=== PATIENT | female | born 1940 | race Caucasian/White ===

== ENCOUNTER 2017-10-30 20:18 | Observation (INO) | payer MEDICARE, OTHER ==
[2017-10-30 21:00] LABS: BASO % 0.3 % (0.0-2.0); EOS # 0.3 K/uL (0.0-0.7); EOS % 4.2 % (0.0-4.0); HEMOGLOBIN 9.8 g/dL (11.0-16.0); LYMPH # 1.4 K/uL (1.0-4.3); LYMPH % 17.8 % (20.0-40.0); MEAN CELL VOLUME 81.7 fL (81.0-99.0); MEAN CORPUSCULAR HEMOGLOBIN 27.1 pg (27.0-31.0); MEAN CORPUSCULAR HGB CONC 33.1 g/dL (33.0-37.0); MEAN PLATELET VOLUME 8.3 fL (7.2-11.7); MONO # 0.6 K/uL (0.0-0.8); MONO % 7.8 % (0.0-10.0); NEUT # 5.4 K/uL (1.8-7.0); NEUT % 69.9 % (50.0-75.0); NRBC % 0.1 % (0.0-2.0); RBC 3.62 Mil/uL (3.80-5.20); RED CELL DISTRIBUTION WIDTH 13.1 % (11.5-14.5); WHITE BLOOD COUNT 7.8 K/uL (4.8-10.8)
[2017-10-30 21:09] LABS: PROTHROMBIN TIME 11.3 SECONDS (9.7-12.2)
[2017-10-30 21:14] LABS: ALB/GLOB RATIO 1.1 (1.0-2.1); ALBUMIN 3.7 g/dL (3.5-5.0); ALT/SGPT 27 U/L (9-52); AST/SGOT 28 U/L (14-36); BLOOD UREA NITROGEN 20 mg/dL (7-17); CALCIUM 9.1 mg/dl (8.6-10.4); GFR AFRICAN-AMERICAN > 60; GFR NON-AFRICAN AMERICAN > 60; LIPASE 305 U/L (23-300)
[2017-10-30 21:25] LABS: B-TYPE NATRIURETIC PEPTIDE 421 pg/mL (0-900); CK-MB 1.36 ng/mL (0.0-3.38)
[2017-10-30] MEDS ORDERED: Sodium Chloride 0.9% 500 ML IV STA (21:28)
[2017-10-30] MEDS ORDERED: Sodium Chloride 0.9% 1,000 ML ONE (21:37)
--- NOTE | 2017-10-30 22:06 | C.PDOC ---
Time Seen by Provider: 10/30/17 20:38 Chief Complaint (Nursing): Chest Pain History Per: Patient, Family Onset/Duration Of Symptoms: Hrs (2) Current Symptoms Are (Timing): Better Severity: Moderate Quality: "Pain" Modifying Factors: Other Indicated Below Alleviating Factors: None Additional History Per: Prior Records Past Medical History Reviewed: Historical Data, Nursing Documentation, Vital Signs Vital Signs: Last Vital Signs Temp 99.5 F 10/30/17 20:32 Pulse 78 10/30/17 20:32 Resp 18 10/30/17 20:32 BP 147/55 L 10/30/17 20:32 Pulse Ox 100 10/30/17 20:32 - Medical History PMH: CVA (affecting left side), Diabetes (type 2), HTN Family History: States: Unknown Family Hx - Social History Hx Tobacco Use: No Hx Alcohol Use: No Hx Substance Use: No - Immunization History Hx Tetanus Toxoid Vaccination: No Hx Influenza Vaccination: No Hx Pneumococcal Vaccination: No Review Of Systems Except As Marked, All Systems Reviewed And Found Negative. Constitutional: Negative for: Fever Cardiovascular: Positive for: Chest Pain Respiratory: Negative for: Hemoptysis Gastrointestinal: Negative for: Vomiting, Diarrhea Musculoskeletal: Negative for: Neck Pain, Back Pain Neurological: Positive for: Weakness (left side, old) Physical Exam - Physical Exam Appears: No Acute Distress, Chronically Ill Skin: Normal Color, Warm, Dry Head: Atraumatic, Normacephalic Neck: Normal ROM, Supple Chest: Symmetrical, No Deformity Cardiovascular: Rhythm Regular Respiratory: Normal Breath Sounds, No Accessory Muscle Use Gastrointestinal/Abdominal: Soft Back: No CVA Tenderness Extremity: Normal ROM, No Calf Tenderness Neurological/Psych: Oriented x3, No Normal Motor (left side weakness, old) ED Course And Treatment - Laboratory Results Result Diagrams: 10/30/17 20:55 10/30/17 20:55 Interpretation Of Abnormal: Mild anemia and hyponatremia. Mildly elevated BUN. ECG: Interpreted By Me, Viewed By Me ECG Rhythm: Sinus Rhythm, 1st Degree HB, Nonspecific Changes ECG Interpretation: No Changes From Prior Rate From EC O2 Sat by Pulse Oximetry: 100 Pulse Ox Interpretation: Normal - Radiology CXR: Interpreted by Me, Viewed By Me CXR Interpretation: Yes: No Acute Disease Progress - Interventions Interventions:: Observation - Medications Administered Oral: Aspirin (Pt took her aggernox today) - Data Reviewed Data Reviewed: Lab, Diagnostic imaging, EKG, Old records - Continuity of Care Discussed patient case with:: Patient, Family-HIPPA compliant, ED Nurse, PMD Disposition Discussed With : Vipin Lopez Comment: He accepted pt on his service and gave admitting orders to the nurse. Doctor Will See Patient In The: Hospital Counseled Patient/Family Regarding: Studies Performed, Diagnosis - Disposition Disposition: HOSPITALIZED Disposition Time: 22:07 Condition: FAIR - Clinical Impression Clinical Impression: Acute chest pain
--- NOTE | 2017-10-31 06:48 | CP.PCM.CON ---
History of Present Illness - History of Present Illness History of Present Illness: CARDIOLOGY CONSULT NOTE Reason for consult: chest pain HPI: Patient is a 76 year old woman with history of stroke with residual left sided weakness; DM2; HTN; anxiety/depression; who presents with 1 day of intermittent left sided subcostal pain that is sharp, occurs at rest, lasts for 1-2 minutes, and resolves on its own. The pain is non-radiating, and not exacerbated by deep inspiration or physical exertion. No associated SOB, nausea or diaphoresis. She came to [facility] (Former[facility]3]. EKG was unremarkable. Troponin negative x 1. CXR unremarkable. BNP 421. Cardiology now called. ROS: as descirbed above, otherwise negative PMH: as above SH: no ETOH, no tobacco, no drugs FH: no premature CAD Meds: noted in EMR All: noted in EMR Past Patient History - Infectious Disease Hx of Infectious Diseases: None - Past Medical History & Family History Past Medical History?: Yes - Past Social History Smoking Status: Never Smoked - CARDIAC Hx Hypertension: Yes - PULMONARY Hx Respiratory Disorders: No - NEUROLOGICAL HX Cerebrovascular Accident: Yes - HEENT Hx HEENT Problems: No - RENAL Hx Chronic Kidney Disease: No - ENDOCRINE/METABOLIC Hx Endocrine Disorders: Yes Hx Diabetes Mellitus Type 1: Yes - HEMATOLOGICAL/ONCOLOGICAL Hx Blood Disorders: No - INTEGUMENTARY Hx Dermatological Problems: No - MUSCULOSKELETAL/RHEUMATOLOGICAL Hx Musculoskeletal Disorders: Yes Hx Falls: No Hx Unsteady Gait: Yes (LEFT SIDED WEAKNESS FROM OLD CVA) - GASTROINTESTINAL Hx Gastrointestinal Disorders: No - GENITOURINARY/GYNECOLOGICAL Hx Genitourinary Disorders: No - PSYCHIATRIC Hx Substance Use: No - SURGICAL HISTORY Hx Surgeries: Yes Hx Tubal Ligation: Yes - ANESTHESIA Hx Anesthesia: Yes Hx Anesthesia Reactions: No Hx Malignant Hyperthermia: No Meds Allergies/Adverse Reactions: Allergies Allergy/AdvReac Type Severity Reaction Status Date / Time No Known Allergies Allergy Verified 01/13/16 22:07 - Medications Medications: Current Medications Alprazolam (Xanax) 0.25 mg PO HS [facility] Stop: 11/07/17 22:01 Amlodipine Besylate (Norvasc) 10 mg PO DAILY [facility] Dipyridamole/Aspirin (Aggrenox 25-200 Mg) 1 ea PO BID [facility] Home Med (Metformin Hcl [Metformin Hcl]) 1,000 mg PO QPM [facility] Home Med (Multivitamin/Iron/Folic Acid [Centrum Complete Multivit Tab]) 1 tab PO DAILY [facility] Home Med ([place]-3 Fatty Acids/Fish Oil [Fish Oil 1,000 Mg Capsule]) 1,000 mg PO DAILY [facility] Home Med (Simvastatin [Simvastatin]) 20 mg PO QPM [facility] Home Med (Vitamin B Complex [B Complete]) 1 each PO DAILY [facility] Metformin HCl (Glucophage) 500 mg PO QAM [facility] Metoprolol Succinate (Toprol Xl) 50 mg PO BID [facility] Pneumococcal Polyvalent Vaccine (Pneumovax 23 Vaccine) 0.5 ml IM .ONCE ONE Stop: 11/02/17 10:01 Sertraline HCl (Zoloft) 50 mg PO DAILY [facility] Sitagliptin Phosphate (Januvia) 100 mg PO DAILY [facility] Physical Exam - Constitutional Appears: Well - Head Exam Head Exam: ATRAUMATIC - Eye Exam Eye Exam: Normal appearance - ENT Exam ENT Exam: Mucous Membranes Moist - Neck Exam Neck exam: Positive for: Normal Inspection - Respiratory Exam Respiratory Exam: Clear to Auscultation Bilateral, NORMAL BREATHING PATTERN - Cardiovascular Exam Cardiovascular Exam: REGULAR RHYTHM, +S1, +S2. absent: Systolic Murmur - GI/Abdominal Exam GI & Abdominal Exam: Soft. absent: Tenderness - Extremities Exam Extremities exam: Negative for: pedal edema Results - Vital Signs Recent Vital Signs: Last Vital Signs Temp 98.0 F 10/31/17 04:22 Pulse 66 10/31/17 04:22 Resp 20 10/31/17 04:22 BP 170/61 H 10/31/17 04:22 Pulse Ox 98 10/31/17 04:22 - Labs Result Diagrams: 10/30/17 20:55 10/30/17 20:55 Labs: Laboratory Results - last 24 hr 10/30/17 10/30/17 10/30/17 20:24 20:55 20:55 WBC 7.8 RBC 3.62 L Hgb 9.8 L Hct 29.6 L MCV 81.7 MCH 27.1 MCHC 33.1 RDW 13.1 Plt Count 273 MPV 8.3 Neut % (Auto) 69.9 Lymph % (Auto) 17.8 L [place] % (Auto) 7.8 Eos % (Auto) 4.2 H Baso % (Auto) 0.3 Neut # (Auto) 5.4 Lymph # (Auto) 1.4 [place] # (Auto) 0.6 Eos # (Auto) 0.3 Baso # (Auto) 0.0 PT INR APTT Sodium 127 L Potassium 5.0 Chloride 94 L Carbon Dioxide 23 Anion Gap 15 BUN 20 H Creatinine 0.8 Est GFR ( Amer) > 60 Est GFR (Non-Af Amer) > 60 POC Glucose (mg/dL) 213 H Random Glucose 213 H Calcium 9.1 Total Bilirubin 0.3 AST 28 ALT 27 Alkaline Phosphatase 86 Total Creatine Kinase 68 CK-MB (Mass) 1.36 Troponin I < 0.0120 NT-Pro-B Natriuret Pep 421 Total Protein 7.1 Albumin 3.7 Globulin 3.5 Albumin/Globulin Ratio 1.1 Lipase 305 H 10/30/17 20:55 WBC RBC Hgb Hct MCV MCH MCHC RDW Plt Count MPV Neut % (Auto) Lymph % (Auto) [place] % (Auto) Eos % (Auto) Baso % (Auto) Neut # (Auto) Lymph # (Auto) [place] # (Auto) Eos # (Auto) Baso # (Auto) PT 11.3 INR 1.0 APTT 33 Sodium Potassium Chloride Carbon Dioxide Anion Gap BUN Creatinine Est GFR ( Amer) Est GFR (Non-Af Amer) POC Glucose (mg/dL) Random Glucose Calcium Total Bilirubin AST ALT Alkaline Phosphatase Total Creatine Kinase CK-MB (Mass) Troponin I NT-Pro-B Natriuret Pep Total Protein Albumin Globulin Albumin/Globulin Ratio Lipase - Impressions Impression: sinus rhythm, prolonged RI, otherwise normal tracing Assessment & Plan - Assessment and Plan (Free Text) Assessment: 1. Atypical chest pain -- likely noncardiac, troponin neg x 1 2. Hypertensive urgency Plan: 1. For better BP control, I will d/c metoprolol and switch to carvedilol 25mg BID 2. Cont amlodipine 10mg daily 3. Check one more troponin -- if negative, then patient would be cardiovascularly stable for discharge and follow up with Dr. Kaur in office in 1-2 weeks for consideration of stress test
[2017-10-31 06:57] LABS: BASO % 0.5 % (0.0-2.0); EOS # 0.3 K/uL (0.0-0.7); EOS % 4.2 % (0.0-4.0); HEMOGLOBIN 9.5 g/dL (11.0-16.0); LYMPH # 1.5 K/uL (1.0-4.3); LYMPH % 21.3 % (20.0-40.0); MEAN CELL VOLUME 80.4 fL (81.0-99.0); MEAN CORPUSCULAR HEMOGLOBIN 27.1 pg (27.0-31.0); MEAN CORPUSCULAR HGB CONC 33.7 g/dL (33.0-37.0); MONO # 0.6 K/uL (0.0-0.8); MONO % 8.2 % (0.0-10.0); NEUT # 4.7 K/uL (1.8-7.0); NEUT % 65.8 % (50.0-75.0); RBC 3.5 Mil/uL (3.80-5.20); RED CELL DISTRIBUTION WIDTH 13.2 % (11.5-14.5); WHITE BLOOD COUNT 7.2 K/uL (4.8-10.8)
[2017-10-31 08:03] LABS: ALBUMIN 3.3 g/dL (3.5-5.0); ALT/SGPT 28 U/L (9-52); AST/SGOT 26 U/L (14-36); BLOOD UREA NITROGEN 14 mg/dL (7-17); GFR AFRICAN-AMERICAN > 60; GFR NON-AFRICAN AMERICAN > 60
[2017-10-31 08:48] VITALS: PULSE 76; RESP 18; TEMP 98.9; O2SAT 99
[2017-10-31 09:55] VITALS: BP 152/76
[2017-10-31] MEDS ORDERED: Enoxaparin 40 mg Syringe SC SCH (10:00)
[2017-10-31] MEDS ORDERED: VITAMIN B COMPLEX PO SCH (10:00)
[2017-10-31] MEDS ORDERED: Omega-3-Acid Ethyl Esters 1 GM Cap PO SCH (10:00)
[2017-10-31] MEDS ORDERED: FOLIC ACID PO SCH (10:00)
[2017-10-31] MEDS ORDERED: IRON PO SCH (10:00)
[2017-10-31] MEDS ORDERED: Metoprolol Succinate 50 mg XL Tab PO SCH (10:00)
[2017-10-31] MEDS ORDERED: MULTIVITAMIN PO SCH (10:00)
[2017-10-31] MEDS ORDERED: FISH OIL PO SCH (10:00)
[2017-10-31] MEDS ORDERED: OMEGA PO SCH (10:00)
[2017-10-31] MEDS ORDERED: FATTY ACIDS PO SCH (10:00)
[2017-10-31] MEDS ORDERED: Aspirin-Dipyridamole 200-25 mg ER Cap PO SCH (10:00)
[2017-10-31] MEDS ORDERED: Multivitamin With Minerals Tab PO SCH (10:00)
--- NOTE | 2017-10-31 11:19 | RAD ---
PROCEDURE: CHEST RADIOGRAPH, 1 VIEW HISTORY: chest pain COMPARISON: None available. FINDINGS: LUNGS: No definite infiltrate identified bilaterally. PLEURA: No pneumothorax or pleural fluid seen. CARDIOVASCULAR: No definite cardiomegaly. Borderline pulmonary vascular congestion. OSSEOUS STRUCTURES: Degenerative bilateral shoulder changes are appreciated. VISUALIZED UPPER ABDOMEN: Normal. OTHER FINDINGS: None. IMPRESSION: Borderline pulmonary vascular congestion. Exam otherwise unremarkable.
[2017-10-31 13:47] LABS: CK-MB 0.82 ng/mL (0.0-3.38)
--- NOTE | 2017-10-31 17:49 | HP ---
SUBJECTIVE: I know Jess very well from hospitals over the past few years. She has some chest pain. She was sent to the emergency room. She is a 76-year-old [place] female with a history of left-sided weakness secondary to CVA. She has diabetes, hypertension, anxiety, depression. She walks very slowly with a cane at home, difficult for her to walk around, but she had left-sided substernal pain, was on and off for about 24 hours, was nonradiating, and she came to the emergency room for evaluation. The first troponins were negative. EKG was fine. We kept her for observation to make sure we are not having any other cardiac issues. There is an old CVA, with left-sided weakness, diabetes, hypertension, anxiety, depression, walks with a cane. SOCIAL HISTORY: No smoking, no drinking, no drugs. FAMILY HISTORY: CAD and diabetes in the family. REVIEW OF SYSTEMS: No acute vision or hearing problems. No sore throat. She has neck pain. She has left-sided weakness. She has chest pain, substernal, sharp, on and off for about 24 hours, lasts a minute at a time. No shortness of breath. No palpitations. No cough. No abdominal pain. No nausea, vomiting, constipation, or diarrhea. No edema. MEDICATIONS: She takes Xanax, amlodipine, Aggrenox, metformin, multivitamins, omega-3, Zocor, vitamin D, Glucophage, Toprol, Zoloft, Januvia. ALLERGIES: NO KNOWN DRUG ALLERGIES. PHYSICAL EXAMINATION: VITAL SIGNS: She has a 98 temperature, 66 pulse, 20 respiratory rate, 170/61 blood pressure, 97% O2 saturation on room air. HEENT: Head is atraumatic, normocephalic. Extraocular muscles are intact. Throat is moist. NECK: Supple. Thyroid midline. No palpable appreciable lymphadenopathy. HEART: Regular rate. LUNGS: Decreased breath sounds, but clear. ABDOMEN: Soft, nontender. Positive bowel sounds. No guarding. No rebound. No CVA tenderness. EXTREMITIES: No edema. Left side is weak secondary to a stroke. Full range of motion of the left side. SKIN: For the most part is intact. Cannot tell any ulcers or rashes at this time. LABORATORY DATA: She had multiple tests. She has a 7.2 white count, 9.5 hemoglobin, 28.1 hematocrit, and 216 platelets. INR is 1. Sodium 127, potassium is 5, BUN is 20, creatinine 0.8, GFR greater than 60, sugars 213, calcium is 9.1, total bilirubin is 0.3, AST is 28, ALT is 27, alkaline phosphatase 86, total creatine kinase is 68. Troponin I is less than 0.012, BNP is 421, total protein is 7.1, albumin is 3.7, and lipase is 305. She was seen by the coding and reimbursement specialist. He recommended some changes in her medicines, to increase her Coreg to 25 b.i.d. She was given metoprolol, continue with Norvasc at 10, we will do that. Waiting for the third troponin to come back. If that is normal, she could be discharged later today. She was here for chest pain, rule out [place]. She is on observation. We will have to consult Cardiology on telemetry. Vipin Lopez DO
--- NOTE | 2017-10-31 21:26 | DS ---
She came in with chest pain. The troponins were negative. She was seen by the hydrogen power plant engineer. All the tests were very good. She will be discharged today home. I will be seeing her in about a week on a house call to check up on her and to see if her chest pain is atypical, noncardiac. Vipin Lopez DO
[2017-11-02] MEDS ORDERED: Pneumococcal 23-Valent Vaccine IM ONE (10:00)
--- NOTE | 2017-11-03 14:19 | CARD ---
APPROVED REPORT EKG Measurement Heart [id number] <Conclusion> Sinus rhythm with 1st degree AV block Possible Left atrial enlargement Borderline ECG
== END 2017-10-31 15:07 | disposition home or self-care (01) ==
LOC: C.ER 20:18 → C.9E 22:08 → C.6T 23:08
PROVIDERS: ADMIT Family Medicine; ATTEND Family Medicine
DX: R07.9 Chest pain, unspecified (principal); E10.9 Type 1 diabetes mellitus without complications; F32.9 Major depressive disorder, single episode, unspecified; F41.9 Anxiety disorder, unspecified; I10 Essential (primary) hypertension; I16.0 Hypertensive urgency
CPT/HCPCS: 36415; 71045; 80053; 82948; 83690; 83880; 84484; 85025; 85610; 85730; 93005; 96372; 97116; 97162; 99285; G0378; G8978; G8979; J1650; J7040

== ENCOUNTER 2018-01-15 16:37 | Inpatient (IN) | payer MEDICARE, OTHER ==
[2018-01-15 18:27] LABS: BASO % 0.4 % (0.0-2.0); EOS # 0.7 K/uL (0.0-0.7); EOS % 7.2 % (0.0-4.0); LYMPH # 1.5 K/uL (1.0-4.3); LYMPH % 15.7 % (20.0-40.0); MEAN CELL VOLUME 81.3 fL (81.0-99.0); MEAN CORPUSCULAR HEMOGLOBIN 27.3 pg (27.0-31.0); MEAN CORPUSCULAR HGB CONC 33.6 g/dL (33.0-37.0); MEAN PLATELET VOLUME 9.2 fL (7.2-11.7); MONO # 0.8 K/uL (0.0-0.8); MONO % 7.7 % (0.0-10.0); NEUT # 6.7 K/uL (1.8-7.0); NRBC % 0.1 % (0.0-2.0); RBC 4.03 Mil/uL (3.80-5.20); RED CELL DISTRIBUTION WIDTH 14.5 % (11.5-14.5); WHITE BLOOD COUNT 9.7 K/uL (4.8-10.8)
[2018-01-15 18:38] LABS: INR 1.1; PROTHROMBIN TIME 11.7 SECONDS (9.7-12.2)
[2018-01-15 18:42] LABS: ALB/GLOB RATIO 1.3 (1.0-2.1); ALBUMIN 4.1 g/dL (3.5-5.0); CALCIUM 12.7 mg/dl (8.6-10.4)
[2018-01-15 18:53] LABS: TROPONIN I 0.021 ng/mL (0.00-0.120)
[2018-01-15] MEDS ORDERED: Sodium Chloride 0.9% 1,000 ML IV SCH (19:00)
[2018-01-15] MEDS ORDERED: Sodium Chloride 0.9% 1,000 ML ONE (19:06)
[2018-01-15 19:20] LABS: SQUAMOUS EPITHIAL 1 /hpf (0-5); URINE BILIRUBIN NEGATIVE (NEGATIVE); URINE BLOOD NEGATIVE (NEGATIVE); URINE CLARITY Hazy (Clear); URINE COLOR Yellow (YELLOW); URINE GLUCOSE (UA) NORMAL (Normal); URINE LEUKOCYTE ESTERASE NEG Leu/uL (Negative); URINE PROTEIN 2+ mg/dL (NEGATIVE); URINE UROBILINOGEN NORMAL mg/dL (0.2-1.0)
[2018-01-15] MEDS ORDERED: Iodixanol 320 MG/ML 100 ML BOTTLE IV ONE (19:39)
--- NOTE | 2018-01-15 21:50 | C.PDOC ---
History Of Present Illness 77yo female, comes to ER with complaints of mild upper abdominal pain and weakness x 8 days. She also reports associated nausea and decreased appetite. She denies any fever, cough, chest pain or shortness of breath. Time Seen by Provider: 01/15/18 18:00 Chief Complaint (Nursing): Upper Extremity Problem/Injury History Per: Patient History/Exam Limitations: no limitations Onset/Duration Of Symptoms: Days Current Symptoms Are (Timing): Still Present Severity: Mild Location Of Pain/Discomfort: RUQ, Epigastric, LUQ Past Medical History Reviewed: Historical Data, Nursing Documentation, Vital Signs Vital Signs: Last Vital Signs Temp 98 F 01/16/18 00:29 Pulse 68 01/16/18 00:29 Resp 20 01/16/18 00:29 BP 150/60 01/16/18 00:29 Pulse Ox 98 01/16/18 00:29 - Medical History PMH: CVA (affecting left side), Diabetes (type 2), HTN Denies: Chronic Kidney Disease Family History: States: Unknown Family Hx - Social History Hx Tobacco Use: No Hx Alcohol Use: No Hx Substance Use: No - Immunization History Hx Tetanus Toxoid Vaccination: No Hx Influenza Vaccination: No Hx Pneumococcal Vaccination: No Review Of Systems Except As Marked, All Systems Reviewed And Found Negative. Constitutional: Negative for: Fever, Chills Cardiovascular: Negative for: Chest Pain Respiratory: Negative for: Cough, Shortness of Breath Gastrointestinal: Positive for: Abdominal Pain Physical Exam - Physical Exam Appears: Non-toxic, No Acute Distress Skin: Warm, Dry Head: Normacephalic Eye(s): bilateral: Normal Inspection Neck: Normal ROM, Supple Chest: Symmetrical Cardiovascular: Rhythm Regular Respiratory: Normal Breath Sounds Gastrointestinal/Abdominal: Soft, Tenderness (minimal tenderness upper quadrants ), No Guarding, No Rebound Back: Normal Inspection Extremity: Normal ROM Neurological/Psych: Oriented x3 ED Course And Treatment - Laboratory Results Result Diagrams: 01/15/18 18:24 01/15/18 18:24 O2 Sat by Pulse Oximetry: 96 (RA) Pulse Ox Interpretation: Normal Medical Decision Making Medical Decision Making: Plan: - Labs - US Abdomen - CT Abdomen w/ IV Contrast -- IV Pepcid -- IV Zofran -- IV Fluids Disposition - Disposition Disposition Time: 21:00 Condition: STABLE - Clinical Impression Clinical Impression: Gall stones, Abdominal pain - Scribe Statement The provider has reviewed the documentation as recorded by the Vidalibe Shara Dempsey Provider Attestation: All medical record entries made by the Jerel were at my direction and personally dictated by me. I have reviewed the chart and agree that the record accurately reflects my personal performance of the history, physical exam, medical decision making, and the department course for this patient. I have also personally directed, reviewed, and agree with the discharge instructions and disposition.
[2018-01-16] MEDS ORDERED: Aspirin-Dipyridamole 200-25 mg ER Cap PO STA (01:42)
[2018-01-16] MEDS ORDERED: Bisacodyl 5mg EC Tab PO PRN (03:32)
[2018-01-16] MEDS ORDERED: Sodium Chloride 0.9% 1,000 ML IV SCH (07:30)
[2018-01-16] MEDS: Multiple Vitamins Tab PO SCH (09:39)
[2018-01-16] MEDS: Metoprolol Succinate 100 mg XL Tab PO SCH (09:40)
[2018-01-16] MEDS: Enoxaparin 30 mg Syringe SC SCH (09:40)
[2018-01-16] MEDS: Aspirin-Dipyridamole 200-25 mg ER Cap PO SCH ×2 (09:40→17:12)
--- NOTE | 2018-01-16 10:37 | CP.PCM.CON ---
History of Present Illness - History of Present Illness History of Present Illness: COVERING DR BARROSO: 77 yo female admitted with diffuse upper abdominal pain and vomiting. Sono shows gallstones and she has mildly elevated AST/ALT and Alk Phos but normal bilirubin. No fever, chills, bleeding or melena. Pain has resolved. She is a poor historian. No N/V. Review of Systems - Review of Systems Systems not reviewed;Unavailable: Dementia - Cardiovascular Cardiovascular: absent: Chest Pain, Dyspnea, Dyspnea on Exertion - Gastrointestinal Gastrointestinal: As Per HPI. absent: Constipation, Diarrhea Past Patient History - Infectious Disease Hx of Infectious Diseases: None - Past Medical History & Family History Past Medical History?: Yes - Past Social History Smoking Status: Never Smoked Alcohol: None Drugs: Denies - CARDIAC Hx Cardiac Disorders: Yes Hx Hypertension: Yes - PULMONARY Hx Respiratory Disorders: No - NEUROLOGICAL Hx Neurological Disorder: Yes HX Cerebrovascular Accident: Yes (left side weakness) - HEENT Hx HEENT Problems: No - RENAL Hx Chronic Kidney Disease: No - ENDOCRINE/METABOLIC Hx Endocrine Disorders: Yes Hx Diabetes Mellitus Type 2: Yes - HEMATOLOGICAL/ONCOLOGICAL Hx Blood Disorders: No Hx Cirrhosis: No Hx Hepatitis A: No Hx Hepatitis B: No Hx Hepatitis C: No - INTEGUMENTARY Hx Dermatological Problems: No - MUSCULOSKELETAL/RHEUMATOLOGICAL Hx Falls: No - GASTROINTESTINAL Hx Gastrointestinal Disorders: No - GENITOURINARY/GYNECOLOGICAL Hx Genitourinary Disorders: No - PSYCHIATRIC Hx Substance Use: No - SURGICAL HISTORY Hx Surgeries: Yes Hx Tubal Ligation: Yes - ANESTHESIA Hx Anesthesia: Yes Hx Anesthesia Reactions: No Hx Malignant Hyperthermia: No Meds Allergies/Adverse Reactions: Allergies Allergy/AdvReac Type Severity Reaction Status Date / Time No Known Allergies Allergy Verified 01/15/18 16:47 - Medications Medications: Current Medications Alprazolam (Xanax) 0.25 mg PO BID PRN PRN Reason: Anxiety Stop: 01/23/18 03:33 Last Admin: 01/16/18 09:50 Dose: 0.25 mg Amlodipine Besylate (Norvasc) 10 mg PO DAILY [facility] Last Admin: 01/16/18 09:40 Dose: 10 mg Bisacodyl (Dulcolax) 5 mg PO DAILY PRN PRN Reason: Constipation Last Admin: 01/16/18 09:50 Dose: 5 mg Dipyridamole/Aspirin (Aggrenox 25-200 Mg) 1 ea PO BID [facility] Last Admin: 01/16/18 09:40 Dose: 1 ea Enoxaparin Sodium (Lovenox) 30 mg SC DAILY [facility] Last Admin: 01/16/18 09:40 Dose: 30 mg Sodium Chloride (Sodium Chloride 0.9%) 1,000 mls @ 40 mls/hr IV .Q24H [facility] Last Admin: 01/16/18 08:04 Dose: 40 mls/hr Ketorolac Tromethamine (Toradol) 30 mg IVP Q6 PRN PRN Reason: Pain, moderate (4-7) Metformin HCl (Glucophage) 500 mg PO DAILY [facility] Last Admin: 01/16/18 09:39 Dose: 500 mg Metformin HCl (Glucophage) 1,000 mg PO QPM [facility] Metoprolol Succinate (Toprol Xl) 100 mg PO DAILY [facility] Last Admin: 01/16/18 09:40 Dose: 100 mg Multivitamins (Hexavitamin) 1 tab PO DAILY [facility] Last Admin: 01/16/18 09:39 Dose: 1 tab Ondansetron HCl (Zofran Inj) 4 mg IVP Q6H PRN PRN Reason: Nausea/Vomiting Pantoprazole Sodium (Protonix Inj) 40 mg IVP DAILY [facility] Last Admin: 01/16/18 09:40 Dose: 40 mg Pneumococcal Polyvalent Vaccine (Pneumovax 23 Vaccine) 0.5 ml IM .ONCE ONE Stop: 01/17/18 10:01 Rosuvastatin Calcium (Crestor) 5 mg PO [facility] Sertraline HCl (Zoloft) 50 mg PO DAILY [facility] Last Admin: 01/16/18 09:40 Dose: 50 mg Sitagliptin Phosphate (Januvia) 100 mg PO DAILY [facility] Last Admin: 01/16/18 09:40 Dose: 100 mg Vitamin B Complex/Folic Acid (Berroca) 1 tab PO DAILY [facility] Last Admin: 01/16/18 09:41 Dose: 1 tab Physical Exam - Constitutional Appears: No Acute Distress, Confused - Head Exam Head Exam: ATRAUMATIC, NORMOCEPHALIC - Eye Exam Eye Exam: EOMI, PERRL - Respiratory Exam Respiratory Exam: NORMAL BREATHING PATTERN - Cardiovascular Exam Cardiovascular Exam: REGULAR RHYTHM, +S1 - GI/Abdominal Exam GI & Abdominal Exam: Distended, Normal Bowel Sounds, Soft. absent: Guarding, Mass, Rebound, Rigid, Tenderness - Rectal Exam Rectal Exam: NORMAL INSPECTION - Extremities Exam Extremities exam: Positive for: normal inspection - Neurological Exam Neurological exam: Alert - Psychiatric Exam Psychiatric exam: Normal Affect, Normal Mood - Skin Skin Exam: Dry, Warm Results - Vital Signs Recent Vital Signs: Last Vital Signs Temp 98.0 F 01/16/18 02:50 Pulse 66 01/16/18 09:39 Resp 20 01/16/18 02:50 BP 183/69 H 01/16/18 09:39 Pulse Ox 98 01/16/18 02:50 - Labs Result Diagrams: 01/15/18 18:24 01/15/18 18:24 Labs: Laboratory Results - last 24 hr 01/15/18 01/15/18 01/15/18 18:24 18:24 18:24 WBC 9.7 RBC 4.03 Hgb 11.0 Hct 32.8 L MCV 81.3 MCH 27.3 MCHC 33.6 RDW 14.5 Plt Count 258 MPV 9.2 Neut % (Auto) 69.0 Lymph % (Auto) 15.7 L [place] % (Auto) 7.7 Eos % (Auto) 7.2 H Baso % (Auto) 0.4 Neut # (Auto) 6.7 Lymph # (Auto) 1.5 [place] # (Auto) 0.8 Eos # (Auto) 0.7 Baso # (Auto) 0.0 PT 11.7 INR 1.1 APTT 35 H Sodium 133 Potassium 4.5 Chloride 96 L Carbon Dioxide 27 Anion Gap 15 BUN 30 H Creatinine 1.2 Est GFR ( Amer) 52 Est GFR (Non-Af Amer) 43 Random Glucose 178 H Calcium 12.7 H Total Bilirubin 0.3 AST 39 H D ALT 60 H D Alkaline Phosphatase 218 H D Troponin I 0.0210 Total Protein 7.3 Albumin 4.1 Globulin 3.2 Albumin/Globulin Ratio 1.3 Urine Color Urine Clarity Urine pH Ur Specific [place] Urine Protein Urine Glucose (UA) Urine Ketones Urine Blood Urine Nitrate Urine Bilirubin Urine Urobilinogen Ur Leukocyte Esterase Urine WBC (Auto) Urine RBC (Auto) Ur Squamous Epith Cells 01/15/18 19:04 WBC RBC Hgb Hct MCV MCH MCHC RDW Plt Count MPV Neut % (Auto) Lymph % (Auto) [place] % (Auto) Eos % (Auto) Baso % (Auto) Neut # (Auto) Lymph # (Auto) [place] # (Auto) Eos # (Auto) Baso # (Auto) PT INR APTT Sodium Potassium Chloride Carbon Dioxide Anion Gap BUN Creatinine Est GFR ( Amer) Est GFR (Non-Af Amer) Random Glucose Calcium Total Bilirubin AST ALT Alkaline Phosphatase Troponin I Total Protein Albumin Globulin Albumin/Globulin Ratio Urine Color Yellow Urine Clarity Hazy Urine pH 5.0 Ur Specific [place] 1.006 Urine Protein 2+ H Urine Glucose (UA) Normal Urine Ketones Negative Urine Blood Negative Urine Nitrate Negative Urine Bilirubin Negative Urine Urobilinogen Normal Ur Leukocyte Esterase Neg Urine WBC (Auto) 1 Urine RBC (Auto) < 1 Ur Squamous Epith Cells 1 Assessment & Plan (1) Abdominal pain, right upper quadrant Assessment and Plan: Patient with pain that may represent biliary colic, constipation r/o cholecystitis though exam does not demonstrate Raines's sign or tenderness at this time. Doubt ischemic bowel. CT pending. Status: Acute (2) Abnormal transaminases Assessment and Plan: r/o choledocholithiasis. May be due to fatty liver. r/o chronic viral disease, autoimmune hepatitis. Status: Acute (3) Gall stones Assessment and Plan: as above. Awaiting CT and official Sono results. May need MRCP and/or Surgical consult. Status: Acute
[2018-01-16] MEDS: Sodium Chloride 0.9% 1,000 ML IV SCH ×3 (12:25→21:57)
--- NOTE | 2018-01-16 16:02 | CT ---
Date of service: 01/15/2018 PROCEDURE: CT Abdomen and Pelvis with contrast HISTORY: upper abdominal pain/tenderness COMPARISON: None. TECHNIQUE: Contrast dose: 100 mL Visipaque 320. Axial and reformatted coronal and sagittal CT images of the abdomen and pelvis were obtained after IV contrast administration. Radiation dose: Total exam DLP = 371.59 mGy-cm. This CT exam was performed using one or more of the following dose reduction techniques: Automated exposure control, adjustment of the mA and/or kV according to patient size, and/or use of iterative reconstruction technique. FINDINGS: LOWER THORAX: No evidence of pleural effusion or pneumothorax. No evidence of infiltrate or consolidation in the lungs. The heart is mildly enlarged. LIVER: Unremarkable. No gross lesion or ductal dilatation. GALLBLADDER AND BILE DUCTS: Gallstones are seen without evidence of acute cholecystitis. PANCREAS: Unremarkable. No gross lesion or ductal dilatation. SPLEEN: Unremarkable. ADRENALS: Unremarkable. No mass. KIDNEYS AND URETERS: Unremarkable. No hydronephrosis. No solid mass. VASCULATURE: Unremarkable. No aortic aneurysm. BOWEL: Unremarkable. No obstruction. No gross mural thickening. APPENDIX: Normal appendix. PERITONEUM: Unremarkable. No free fluid. No free air. LYMPH NODES: Unremarkable. No enlarged lymph nodes. BLADDER: Unremarkable. REPRODUCTIVE: Unremarkable. BONES: No acute fracture. OTHER FINDINGS: None. IMPRESSION: Cholelithiasis without evidence of acute cholecystitis. Limited study degraded by patient's motion. Preliminary report was submitted by virtual Radiology.
[2018-01-16] MEDS ORDERED: METFORMIN HCL 1000 MG PO SCH (18:00)
--- NOTE | 2018-01-16 20:42 | US ---
Date of service: 01/15/2018 HISTORY: upper abd pain - with elevated LFT's COMPARISON: Comparison is made with the previous same-day CT of the abdomen and pelvis. TECHNIQUE: Sonographic evaluation of the abdomen. FINDINGS: LIVER: Measures 15 cm. Normal echogenicity of the liver parenchyma. No mass. No intrahepatic bile duct dilatation. GALLBLADDER: Multiple gallstones are noted. COMMON BILE DUCT: Measures 5.6 mm. No stones. No dilatation. PANCREAS: Suboptimal assessment of the pancreas due to overlying bowel gas. RIGHT KIDNEY: Measures 9.7 x 4.4 x 3.9cm. Normal echogenicity. No calculus, mass, or hydronephrosis. LEFT KIDNEY: Measures 10.4 x 4.8 x 4.6cm. Normal echogenicity. No calculus, mass, or hydronephrosis. SPLEEN: Normal in size and contour. No mass. AORTA: No aneurysmal dilatation. IVC: Unremarkable. OTHER FINDINGS: None. IMPRESSION: Cholelithiasis without ultrasound evidence of acute cholecystitis. No evidence of acute pathology in the abdomen.
--- NOTE | 2018-01-16 20:57 | RAD ---
Date of service: 01/15/2018 HISTORY: r/o infiltrate COMPARISON: Comparison is made with 10/30/2017 FINDINGS: LUNGS: Fullness in the right hilum is again noted. No evidence of new infiltrate or consolidation in the lungs. PLEURA: No significant pleural effusion identified, no pneumothorax apparent. CARDIOVASCULAR: Normal. OSSEOUS STRUCTURES: No significant abnormalities. VISUALIZED UPPER ABDOMEN: Normal. OTHER FINDINGS: None. IMPRESSION: No active disease.
[2018-01-17 01:48] VITALS: RESP 20
--- NOTE | 2018-01-17 01:57 | CON ---
Copied To: Gin Celis MD Attending MD: Gin Celis MD DATE: 01/16/2018 ENDOCRINOLOGY CONSULT LOCATION: In room 667. HISTORY OF PRESENT ILLNESS: This is a 77-year-old female with known history of type 2 diabetes and hypertension, presenting here with upper abdominal pain and associated generalized body weakness with supervening nausea, dyspepsia, and marked anorexia, and has been evaluated to have cholelithiasis and is being seen now with GI for further evaluation and management, and is being referred for endocrine evaluation because of hypercalcemia as noted biochemically thereof. PAST MEDICAL HISTORY: History of type 2 diabetes, currently on a combination of metformin given as 500 mg in the morning and 1 g in the evening with Januvia given as 100 mg daily. History of hypertension and dyslipidemia. History of previous CVA with residual left-sided weakness. History of diabetic retinopathy and polyneuropathy as noted. FAMILY HISTORY: Positive for diabetes and hypertension. SOCIAL HISTORY: Patient has supportive family. No known substance use. REVIEW OF SYSTEMS: Has been noted by the family to have increasing bouts of generalized body weakness with hypersomnolence and lethargy with supervening episodic bouts of dizziness and lightheadedness with bifrontal headache. No chest pains, palpitations, or PNDs. Her oral intake has been variable and suboptimal with nausea, dyspepsia, and marked anorexia. Also admits to upper abdominal pain, worse on the day of admission. PHYSICAL EXAMINATION: GENERAL: This is an average-built female, in no apparent distress. VITAL SIGNS: Blood pressure of 150/90, pulse of 70 beats per minute and regular, temperature 98, respirations 20, height is 5 feet, weight is 140 pounds. HEENT: Head, normocephalic. Eyes, anicteric with pink conjunctivae. Funduscopy not possible at this time. Ears, nose, and throat are, otherwise, normal. NECK: Supple. Thyroid gland is normal size. No carotid bruits or cervical adenopathy. CARDIOPULMONARY: Some adynamic precordium. S1, S2 are rapid and regular. LUNGS: Clear to auscultation. ABDOMEN: Flat and soft with positive bowel sounds. EXTREMITIES: No peripheral edema. Pulses are +2 bilaterally. LABORATORIES: Her chemistries showed a BUN of 30, sodium 133, potassium 4.5, chloride 96, CO2 of 27, glucose 178, and creatinine 1.2. Her calcium level is 12.7, albumin is 4.1. ASSESSMENT: This is a 77-year-old female with upper abdominal pain and dyspepsia and anorexia with concomitant cholelithiasis and also has significant history of type 2 diabetes, hypertension, presenting here with glycemic fluctuations, as expected with intercurrent physical . Moreover, she also has overt hypercalcemia, most likely related to underlying dehydration with prerenal azotemia, although we have to exclude any underlying parathyroid-related disorder such as primary hyperparathyroidism which is quite common in the elderly. PLAN OF MANAGEMENT: We will increase the IV hydration with normal saline to be given at 100 mL per hour as ordered to optimize her lost fluids and electrolytes as noted. We will obtain a parathyroid hormone intact level with a serum phosphorus and magnesium level, and we will also include a 25-hydroxyvitamin D level. We will obtain serial chemistries and supplement accordingly as needed. We will also continue the diabetic medications given in combination as noted and determine the need for addition of basal insulin. We will follow. Gin Celis MD [facility] # [id number]
[2018-01-17] MEDS: Sodium Chloride 0.9% 1,000 ML IV SCH ×5 (02:29→21:52)
[2018-01-17 08:38] LABS: HEMOGLOBIN 10.8 g/dL (11.0-16.0); MEAN CELL VOLUME 80.3 fL (81.0-99.0); MEAN CORPUSCULAR HEMOGLOBIN 26.3 pg (27.0-31.0); MEAN CORPUSCULAR HGB CONC 32.8 g/dL (33.0-37.0); MEAN PLATELET VOLUME 8.9 fL (7.2-11.7); RBC 4.1 Mil/uL (3.80-5.20); RED CELL DISTRIBUTION WIDTH 14.4 % (11.5-14.5); WHITE BLOOD COUNT 6.5 K/uL (4.8-10.8)
[2018-01-17 08:53] LABS: ALB/GLOB RATIO 1.1 (1.0-2.1); ALBUMIN 3.3 g/dL (3.5-5.0); BILIRUBIN,DIRECT 0.2 mg/dL (0.0-0.4); CALCIUM 10.8 mg/dl (8.6-10.4)
[2018-01-17] MEDS ORDERED: Magnesium Sulfate 1 gm in D5W 1 GM/100 ML BAG IVPB ONE (08:58)
[2018-01-17] MEDS ORDERED: Pneumococcal 23-Valent Vaccine IM ONE (10:00)
[2018-01-17] MEDS: Enoxaparin 30 mg Syringe SC SCH (10:19)
[2018-01-17] MEDS: Metoprolol Succinate 100 mg XL Tab PO SCH (10:19)
[2018-01-17] MEDS: Multiple Vitamins Tab PO SCH (10:19)
[2018-01-17] MEDS: Aspirin-Dipyridamole 200-25 mg ER Cap PO SCH ×2 (10:20→16:59)
--- NOTE | 2018-01-17 11:31 | CP.PCM.PN ---
Subjective - Date & Time of Evaluation Date of Evaluation: 01/17/18 Time of Evaluation: 11:19 - Subjective Subjective: COVERING DR BARROSO No pain, N/V. AST/ALT have resolved and Alk Phos is trending downward. Sono normal liver, ducts and GB with multiple stones. No thickening or fluid. Objective - Vital Signs/Intake and Output Vital Signs (last 24 hours): Temp Pulse Resp BP Pulse Ox 98 F 64 20 179/68 H 96 01/17/18 07:00 01/17/18 10:22 01/17/18 07:00 01/17/18 10:22 01/17/18 07:00 Intake and Output: 01/17/18 01/17/18 06:59 18:59 Intake Total 800 Output Total 1400 Balance -600 - Medications Medications: Current Medications Alprazolam (Xanax) 0.25 mg PO BID PRN PRN Reason: Anxiety Stop: 01/23/18 03:33 Last Admin: 01/16/18 21:38 Dose: 0.25 mg Amlodipine Besylate (Norvasc) 10 mg PO DAILY [facility] Last Admin: 01/17/18 10:19 Dose: 10 mg Bisacodyl (Dulcolax) 5 mg PO DAILY PRN PRN Reason: Constipation Last Admin: 01/16/18 09:50 Dose: 5 mg Dipyridamole/Aspirin (Aggrenox 25-200 Mg) 1 ea PO BID [facility] Last Admin: 01/17/18 10:20 Dose: 1 ea Enoxaparin Sodium (Lovenox) 30 mg SC DAILY [facility] Last Admin: 01/17/18 10:19 Dose: 30 mg Sodium Chloride (Sodium Chloride 0.9%) 1,000 mls @ 100 mls/hr IV .Q10H [facility] Last Admin: 01/17/18 09:01 Dose: Not Given Metformin HCl (Glucophage) 500 mg PO DAILY [facility] Last Admin: 01/17/18 10:18 Dose: 500 mg Metformin HCl (Glucophage) 1,000 mg PO QPM [facility] Last Admin: 01/16/18 17:17 Dose: 1,000 mg Metoprolol Succinate (Toprol Xl) 100 mg PO DAILY [facility] Last Admin: 01/17/18 10:19 Dose: 100 mg Multivitamins (Hexavitamin) 1 tab PO DAILY [facility] Last Admin: 01/17/18 10:19 Dose: 1 tab Ondansetron HCl (Zofran Inj) 4 mg IVP Q6H PRN PRN Reason: Nausea/Vomiting Pantoprazole Sodium (Protonix Inj) 40 mg IVP DAILY [facility] Last Admin: 01/17/18 10:19 Dose: 40 mg Rosuvastatin Calcium (Crestor) 5 mg PO HS [facility] Last Admin: 01/16/18 21:34 Dose: 5 mg Sertraline HCl (Zoloft) 50 mg PO DAILY [facility] Last Admin: 01/17/18 10:23 Dose: Not Given Sitagliptin Phosphate (Januvia) 100 mg PO DAILY [facility] Last Admin: 01/17/18 10:19 Dose: 100 mg Vitamin B Complex/Folic Acid (Berroca) 1 tab PO DAILY [facility] Last Admin: 01/17/18 10:20 Dose: 1 tab - Labs Labs: 01/17/18 08:39 01/17/18 08:28 PT 11.7 SECONDS (9.7-12.2) 01/15/18 18:24 INR 1.1 01/15/18 18:24 APTT 35 SECONDS (21-34) H 01/15/18 18:24 - Constitutional Appears: No Acute Distress - Head Exam Head Exam: ATRAUMATIC, NORMOCEPHALIC - Eye Exam Eye Exam: EOMI, PERRL - Respiratory Exam Respiratory Exam: NORMAL BREATHING PATTERN - Cardiovascular Exam Cardiovascular Exam: REGULAR RHYTHM, +S1 - GI/Abdominal Exam GI & Abdominal Exam: Distended, Soft, Normal Bowel Sounds. absent: Guarding, Tenderness, Mass, Rebound - Extremities Exam Extremities Exam: Normal Inspection Assessment and Plan (1) Abdominal pain, right upper quadrant Assessment & Plan: Pain has resolved. May represent biliary colic or perhaps passage of CBD stone with normalization of LFT's and no ductal findings on CT or Sono. With multiple stones she is at risk for passage in the future and possible pancreatitis. Would consider elective Lap Cholecystectomy though her age may factor in favor of further expectant management. Needs surgical consultation prior to discharge. Status: Acute (2) Abnormal transaminases Assessment & Plan: Improving. Perhaps passage of CBD stone. Viral and autoimmune markers ordered and pending. Status: Acute (3) Gall stones Assessment & Plan: as above Status: Acute
--- NOTE | 2018-01-17 13:38 | CP.PCM.CON ---
History of Present Illness - History of Present Illness History of Present Illness: General Surgery consult note for Dr. Bansal Consulted for Cholelithiasis Mrs. Patel is a 77 yr old female with PMH HTN, DM ,HLD and stroke 10 years ago with residual left sided weakness. She sates that she began to have ruq abdominal pain 3 days ago but that it has since resolved. She otherwise denies n/v/f/c stool changes. PMH: HTN, HLD, DM, Stroke 10 years ago with residual left sided weakness PSH: denies Allergies NKDA Social: denies Review of Systems - Review of Systems All systems: reviewed and no additional remarkable complaints except Review of Systems: as per HPI Past Patient History - Infectious Disease Hx of Infectious Diseases: None - Past Medical History & Family History Past Medical History?: Yes - Past Social History Smoking Status: Never Smoked Alcohol: None Drugs: Denies - CARDIAC Hx Hypertension: Yes - PULMONARY Hx Respiratory Disorders: No - NEUROLOGICAL HX Cerebrovascular Accident: Yes - HEENT Hx HEENT Problems: No - RENAL Hx Chronic Kidney Disease: No - ENDOCRINE/METABOLIC Hx Endocrine Disorders: Yes Hx Diabetes Mellitus Type 2: Yes - HEMATOLOGICAL/ONCOLOGICAL Hx Blood Disorders: No Hx Cirrhosis: No Hx Hepatitis A: No Hx Hepatitis B: No Hx Hepatitis C: No - INTEGUMENTARY Hx Dermatological Problems: No - MUSCULOSKELETAL/RHEUMATOLOGICAL Hx Falls: No - GASTROINTESTINAL Hx Gastrointestinal Disorders: No - GENITOURINARY/GYNECOLOGICAL Hx Genitourinary Disorders: No - PSYCHIATRIC Hx Substance Use: No - SURGICAL HISTORY Hx Surgeries: Yes Hx Tubal Ligation: Yes - ANESTHESIA Hx Anesthesia: Yes Hx Anesthesia Reactions: No Hx Malignant Hyperthermia: No Meds Allergies/Adverse Reactions: Allergies Allergy/AdvReac Type Severity Reaction Status Date / Time No Known Allergies Allergy Verified 01/15/18 16:47 - Medications Medications: Current Medications Alprazolam (Xanax) 0.25 mg PO BID PRN PRN Reason: Anxiety Stop: 01/23/18 03:33 Last Admin: 01/16/18 21:38 Dose: 0.25 mg Amlodipine Besylate (Norvasc) 10 mg PO DAILY [facility] Last Admin: 01/17/18 10:19 Dose: 10 mg Bisacodyl (Dulcolax) 5 mg PO DAILY PRN PRN Reason: Constipation Last Admin: 01/16/18 09:50 Dose: 5 mg Dipyridamole/Aspirin (Aggrenox 25-200 Mg) 1 ea PO BID [facility] Last Admin: 01/17/18 10:20 Dose: 1 ea Enoxaparin Sodium (Lovenox) 30 mg SC DAILY [facility] Last Admin: 01/17/18 10:19 Dose: 30 mg Ergocalciferol (Drisdol 50,000 Intl Units Cap) 1 cap PO QWK [facility] Sodium Chloride (Sodium Chloride 0.9%) 1,000 mls @ 100 mls/hr IV .Q10H [facility] Last Admin: 01/17/18 09:01 Dose: Not Given Metformin HCl (Glucophage) 500 mg PO DAILY [facility] Last Admin: 01/17/18 10:18 Dose: 500 mg Metformin HCl (Glucophage) 1,000 mg PO QPM [facility] Last Admin: 01/16/18 17:17 Dose: 1,000 mg Metoprolol Succinate (Toprol Xl) 100 mg PO DAILY [facility] Last Admin: 01/17/18 10:19 Dose: 100 mg Multivitamins (Hexavitamin) 1 tab PO DAILY [facility] Last Admin: 01/17/18 10:19 Dose: 1 tab Ondansetron HCl (Zofran Inj) 4 mg IVP Q6H PRN PRN Reason: Nausea/Vomiting Pantoprazole Sodium (Protonix Inj) 40 mg IVP DAILY [facility] Last Admin: 01/17/18 10:19 Dose: 40 mg Rosuvastatin Calcium (Crestor) 5 mg PO HS [facility] Last Admin: 01/16/18 21:34 Dose: 5 mg Sertraline HCl (Zoloft) 50 mg PO DAILY [facility] Last Admin: 01/17/18 10:23 Dose: Not Given Sitagliptin Phosphate (Januvia) 100 mg PO DAILY [facility] Last Admin: 01/17/18 10:19 Dose: 100 mg Vitamin B Complex/Folic Acid (Berroca) 1 tab PO DAILY [facility] Last Admin: 01/17/18 10:20 Dose: 1 tab Physical Exam - Constitutional Appears: Well, Non-toxic, No Acute Distress - Head Exam Head Exam: ATRAUMATIC, NORMOCEPHALIC - ENT Exam ENT Exam: Mucous Membranes Moist - Respiratory Exam Respiratory Exam: NORMAL BREATHING PATTERN - Cardiovascular Exam Cardiovascular Exam: +S1, +S2 - GI/Abdominal Exam GI & Abdominal Exam: Soft. absent: Distended, Firm, Guarding, Rebound, Rigid, Tenderness Additional comments: negative angelo's sign - Extremities Exam Extremities exam: Negative for: calf tenderness, pedal edema - Neurological Exam Neurological exam: Alert, Oriented x3 - Psychiatric Exam Psychiatric exam: Normal Affect, Normal Mood - Skin Skin Exam: Dry, Intact, Normal Color, Warm Results - Vital Signs Recent Vital Signs: Last Vital Signs Temp 98 F 01/17/18 07:00 Pulse 64 01/17/18 10:22 Resp 20 01/17/18 07:00 BP 179/68 H 01/17/18 10:22 Pulse Ox 96 01/17/18 07:00 - Labs Result Diagrams: 01/17/18 08:39 01/17/18 08:28 Labs: Laboratory Results - last 24 hr 01/17/18 01/17/18 01/17/18 08:28 08:28 08:39 WBC 6.5 RBC 4.10 Hgb 10.8 L Hct 33.0 L MCV 80.3 L MCH 26.3 L MCHC 32.8 L RDW 14.4 Plt Count 229 MPV 8.9 Sodium 138 Potassium 3.7 Chloride 105 Carbon Dioxide 27 Anion Gap 10 BUN 15 Creatinine 1.1 Est GFR ( Amer) 58 Est GFR (Non-Af Amer) 48 Random Glucose 133 H Calcium 10.8 H Phosphorus 2.8 Magnesium 1.4 L Total Bilirubin 0.2 Direct Bilirubin 0.2 AST 23 ALT 42 Alkaline Phosphatase 180 H Total Protein 6.2 L Albumin 3.3 L Globulin 2.9 Albumin/Globulin Ratio 1.1 Triglycerides 129 Cholesterol 112 LDL Cholesterol Direct 37 HDL Cholesterol 37 Lipase 117 25-OH Vitamin D Total 19.3 L TSH 3rd Generation 0.76 Assessment & Plan - Assessment and Plan (Free Text) Assessment: 77 yr old female with resolved RUQ pain, possible biliary colic episode Plan: - gallstones visualized on US, no pericholecystic fluid, no stones in CBD, no signs of cholecystitis at this time - total bili normal, AST and ALT normal today, Alkaline phosphatase improving - patient and family electing for outpatient follow up at this time - d/w Dr. Bansal all further recs per him Jasmyn Castellon, PGY 1 - Date & Time Date: 01/17/18 Time: 12:05
--- NOTE | 2018-01-17 16:17 | PN ---
Copied To: Gin Celis MD Attending MD: Gin Celis MD DATE: 01/17/2018 ENDO FOLLOWUP NOTE LOCATION: In room 667. SUBJECTIVE: This is a 77-year-old female presenting here with upper abdominal pain and associated nausea, dyspepsia, vomiting and has been evaluated to have cholelithiasis and is being followed closely for metabolic management. She has also been seen by GI with ongoing workup and management as noted. She has been referred for metabolic evaluation of hypercalcemia as noted on admission. Her glycemic levels are fluctuating, but much improved at this time as noted. LABORATORY DATA: Her latest chemistries today showed a BUN of , sodium 138, potassium 3.7, chloride 105, CO2 of 27, glucose 133, and creatinine 1.1. Her calcium level now is 10.8, which has improved with IV hydration as given. Her 25-hydroxy vitamin D is 19.3. ASSESSMENT: This is a 77-year-old female with known history of type 2 diabetes and hypertension with optimal metabolic control of her diabetic condition on a combination of oral hypoglycemic therapy as given. She presents here with vomiting and upper abdominal pain with supervening transient hypercalcemia with an initial calcium of 12.7, most likely related to dehydration with concomitant prerenal azotemia as noted biochemically. The calcium level is improved overnight as noted with vigorous intravenous hydration as given. However, we have to exclude any underlying primary hyperparathyroidism, especially with the advanced age as noted. PLAN OF MANAGEMENT: We are awaiting the reports of the parathyroid hormone intact level as ordered today and this will confirm presence of a parathyroid related disorder causing the hypercalcemia. However, we will continue the IV hydration as given to optimize her lost fluids and electrolytes as noted. We will also continue her oral hypoglycemic drug therapy with Januvia given at 100 mg daily and metformin at 500 mg in the morning and 1 g in the evening as given. We will obtain serial chemistries and supplement accordingly as needed. We will follow. Gin Celis MD
[2018-01-18 08:00] LABS: ALB/GLOB RATIO 1.1 (1.0-2.1); ALBUMIN 3.1 g/dL (3.5-5.0); ALT/SGPT 36 U/L (9-52); AST/SGOT 23 U/L (14-36); BLOOD UREA NITROGEN 12 mg/dL (7-17); CALCIUM 10.4 mg/dl (8.6-10.4); GFR AFRICAN-AMERICAN > 60; GFR NON-AFRICAN AMERICAN 53
[2018-01-18 08:09] VITALS: BP 190/68; PULSE 64; TEMP 98.1; O2SAT 98
--- NOTE | 2018-01-18 08:29 | DS ---
Copied To: Vipin Lopez DO Attending MD: Vipin Lopez DO HOSPITAL COURSE: I saw her resting comfortably in bed. She ate a whole breakfast. She is hungry. No more abdominal pain. No nausea or vomiting, no constipation or diarrhea. She is in very good spirits. She is telling me she wants to go home. MEDICATIONS: Currently, she is on Aggrenox, Berocca, Crestor, Dulcolax, Glucophage, Hexavitamin, Januvia, Lovenox, magnesium replacement, Norvasc, Protonix, IV fluids, Toprol, Xanax, Zoloft, and Zofran. PHYSICAL EXAMINATION: VITAL SIGNS: She has a 98 temp, 61 pulse, 172/69 blood pressure, 20 respiratory rate, 96% O2 sat on room air. HEENT: Head is atraumatic, normocephalic. Throat is moist. GENERAL: She is much more alert, talking to me, back to her baseline. NECK: Supple. HEART: Regular rate. LUNGS: Decreased breath sounds, but clear. ABDOMEN: Soft, nontender. Positive bowel sounds. No guarding, no rebound, no CVA tenderness. EXTREMITIES: No edema. Left side is weak and contracted from a old CVA. Physical Therapy recommended [place]. She is refusing to go to [place]. I will discuss with family if they could take care of her at home. LABORATORY DATA: She had good blood test today. Sodium is 138, potassium is 3.7, BUN 15, creatinine 1.1. GFR is 48. Sugar was 133. Calcium dropped to 10.8 from 12.7. Phosphorus is 2.8. Magnesium is 1.4. I gave her a rider. Total bili is 0.2, direct bili is 0.2. AST is 23, ALT is 42, alk phos 180, all improved. Total protein 6.2, albumin 3.3, globulin 2.9, triglycerides 129, cholesterol is 112. Thyroid test is pending. Urine was clean. She has 6.5 white count, 10.8 hemoglobin, 33 hematocrit, and 229 platelets. ASSESSMENT AND PLAN: She was seen by Endocrinology and GI. She is back to her baseline. My suggestion will be to go to [place], she is refusing. I will discuss with family. If we can get to her daughters where they could do physical therapy there, I will be okay with discharging her, making a code 44 and getting her out today. She wants to leave. She is feeling better. I will discuss with family. She was here for abdominal pain, nauseousness. She had gallstones, high calcium, low magnesium, high liver function tests, all improved. Vipin Lopez DO
--- NOTE | 2018-01-18 08:29 | HP ---
Copied To: Vipin Lopez DO Attending MD: Vipin Lopez DO HISTORY OF PRESENT ILLNESS: I know her for many years, doing house calls on her. She has a history of an old stroke, left-sided weakness. She walks with a cane at home. She comes in being a 77-year-old female with mild abdominal pain and weakness for eight days with nauseousness and decreased appetite. No chest pain or shortness of breath. She is not feeling well. Right upper quadrant pain, epigastric, and left upper quadrant pain. PAST MEDICAL HISTORY: CVA affecting the left side, diabetes, hypertension, also has chronic kidney disease and elevated liver enzymes. FAMILY HISTORY: Hypertension and diabetes in the family. SOCIAL HISTORY: Nonsmoker. No drinking. No drugs. REVIEW OF SYSTEMS: She has no acute vision or hearing change. No sore throat. No chest pain or palpitations. No shortness of breath or cough. She has abdominal pain. She has nauseousness, occasional vomiting but none this morning. She has left-sided weakness secondary to an old stroke. that she knows of PHYSICAL EXAMINATION GENERAL: She looks pale, nontoxic, no acute distress at this time, slept fairly well. VITAL SIGNS: She has a 98 temp, 58 pulse, 20 respiratory rate, 150/60 blood pressure, and 98% O2 saturation on room air. SKIN: Warm and dry. No apparent rashes or ulcers. HEENT: Head: Atraumatic and normocephalic. Extraocular muscles are intact. Throat is moist. NECK: Supple. HEART: Regular rate. LUNGS: Decreased breath sounds but clear. Full inspiration. ABDOMEN: Soft. Mild tenderness diffusely of all four quadrants. No guarding. No rebound. No CVA tenderness. EXTREMITIES: No edema. NEUROLOGIC: She is alert and oriented x3. Left side of her body is paralyzed from old stroke but she has managed to walk with physical therapy and a cane. LABORATORY DATA: She had a bunch of tests done, 9.7 white count, 11 hemoglobin, 32 hematocrit, and 258 platelets. She has a urine with 2+ protein. She had chemistry with 133 sodium, potassium of 4.5, BUN 30, creatinine 1.2. We gave her some IV fluids. Sugar was 178, calcium 12.7; quite high, , AST is 39, ALT is 60, alk phos 218. Troponin I is 0.02. Total protein albumin is 4.1. INR is 1.1. She has multiple reports pending of abdominal ultrasound and abdomen, pelvis, and chest x-ray all pending. IMPRESSION AND PLAN: Consult with Dr. Leija, the american sign language teacher. She was NPO overnight no more abdominal pain. I increased the diet to see how she would do. She was on intravenous fluid, Zofran, Protonix, and her regular medications. I am hoping that she will improve quickly. If the tests are negative and she improves well and eats well, likely have a discharge this afternoon. I If not, we will continue the inpatient treatment and watch depending what Vipin Lopez DO [email or web address]
[2018-01-18 08:38] LABS: HEPATITIS B SURFACE AG Negative (NEGATIVE)
--- NOTE | 2018-01-18 09:20 | CP.PCM.PN ---
Subjective - Date & Time of Evaluation Date of Evaluation: 01/18/18 Time of Evaluation: 09:18 - Subjective Subjective: Patient denies having nausea, vomiting, abdominal pain. She has not had a bowel movement today. Liver enzymes are improving: Blood dork from today shows AST 23, ALT 36, and ALKP 177. Objective - Vital Signs/Intake and Output Vital Signs (last 24 hours): Temp Pulse Resp BP Pulse Ox 98.1 F 64 20 190/68 H 98 01/18/18 07:00 01/18/18 07:00 01/18/18 07:00 01/18/18 07:00 01/18/18 07:00 Intake and Output: 01/18/18 01/18/18 06:59 18:59 Intake Total 1150 Output Total 1850 Balance -700 - Medications Medications: Current Medications Alprazolam (Xanax) 0.25 mg PO BID PRN PRN Reason: Anxiety Stop: 01/23/18 03:33 Last Admin: 01/16/18 21:38 Dose: 0.25 mg Amlodipine Besylate (Norvasc) 10 mg PO DAILY [facility] Last Admin: 01/17/18 10:19 Dose: 10 mg Bisacodyl (Dulcolax) 5 mg PO DAILY PRN PRN Reason: Constipation Last Admin: 01/16/18 09:50 Dose: 5 mg Dipyridamole/Aspirin (Aggrenox 25-200 Mg) 1 ea PO BID [facility] Last Admin: 01/17/18 16:59 Dose: 1 ea Enoxaparin Sodium (Lovenox) 30 mg SC DAILY [facility] Last Admin: 01/17/18 10:19 Dose: 30 mg Ergocalciferol (Drisdol 50,000 Intl Units Cap) 1 cap PO QWK [facility] Losartan Potassium (Cozaar) 50 mg PO DAILY [facility] Metformin HCl (Glucophage) 500 mg PO DAILY [facility] Last Admin: 01/17/18 10:18 Dose: 500 mg Metformin HCl (Glucophage) 1,000 mg PO QPM [facility] Last Admin: 01/17/18 17:00 Dose: 1,000 mg Metoprolol Succinate (Toprol Xl) 100 mg PO DAILY [facility] Last Admin: 01/17/18 10:19 Dose: 100 mg Multivitamins (Hexavitamin) 1 tab PO DAILY [facility] Last Admin: 01/17/18 10:19 Dose: 1 tab Ondansetron HCl (Zofran Inj) 4 mg IVP Q6H PRN PRN Reason: Nausea/Vomiting Pantoprazole Sodium (Protonix Inj) 40 mg IVP DAILY [facility] Last Admin: 01/17/18 10:19 Dose: 40 mg Rosuvastatin Calcium (Crestor) 5 mg PO HS [facility] Last Admin: 01/17/18 21:15 Dose: 5 mg Sertraline HCl (Zoloft) 50 mg PO DAILY [facility] Last Admin: 01/17/18 10:23 Dose: Not Given Sitagliptin Phosphate (Januvia) 100 mg PO DAILY [facility] Last Admin: 01/17/18 10:19 Dose: 100 mg Vitamin B Complex/Folic Acid (Berroca) 1 tab PO DAILY [facility] Last Admin: 01/17/18 10:20 Dose: 1 tab - Labs Labs: 01/17/18 08:39 01/18/18 06:34 PT 11.7 SECONDS (9.7-12.2) 01/15/18 18:24 INR 1.1 01/15/18 18:24 APTT 35 SECONDS (21-34) H 01/15/18 18:24 - Constitutional Appears: No Acute Distress - Head Exam Head Exam: ATRAUMATIC, NORMOCEPHALIC - Eye Exam Eye Exam: EOMI, PERRL - Neck Exam Neck Exam: absent: Lymphadenopathy, Thyromegaly - Respiratory Exam Respiratory Exam: NORMAL BREATHING PATTERN. absent: Rales, Rhonchi, Wheezes - Cardiovascular Exam Cardiovascular Exam: REGULAR RHYTHM, +S1, +S2. absent: Gallop, Rubs, Murmur - GI/Abdominal Exam GI & Abdominal Exam: Soft, Normal Bowel Sounds. absent: Tenderness, Mass, Organomegaly - Rectal Exam Rectal Exam: Deferred - Extremities Exam Extremities Exam: absent: Calf Tenderness, Pedal Edema Assessment and Plan (1) Gallstone Assessment & Plan: Patient denies having abdominal pain at present. Liver enzymes are improving. The clinical picture is consistent with passage of a stone. Patient and family wish to defer surgery, and will follow up with Dr. Bansal as an outpatient. Status: Acute
[2018-01-18] MEDS ORDERED: Magnesium Sulfate 1 gm in D5W 1 GM/100 ML BAG IVPB ONE (10:00)
[2018-01-18] MEDS ORDERED: Ergocalciferol 50,000 Intl Units Cap PO SCH (10:00)
[2018-01-18] MEDS ORDERED: Potassium Chloride 20 mEq ER Tab PO ONE (10:00)
[2018-01-18] MEDS: Enoxaparin 30 mg Syringe SC SCH (10:34)
[2018-01-18] MEDS: Multiple Vitamins Tab PO SCH (10:35)
[2018-01-18] MEDS: Metoprolol Succinate 100 mg XL Tab PO SCH (10:35)
[2018-01-18] MEDS: Aspirin-Dipyridamole 200-25 mg ER Cap PO SCH (10:36)
--- NOTE | 2018-01-18 18:31 | PN ---
Copied To: Gin Celis MD Attending MD: Gin Celis MD DATE: 01/18/2018 ENDO FOLLOWUP NOTE LOCATION: Room 667. SUBJECTIVE: This is a 77-year-old female with recent uncontrolled type 2 diabetes, also presenting here with upper abdominal pain and vomiting episodes with supervening dehydration and transient hypercalcemia and is now being followed closely for metabolic management. LABORATORY DATA: Her chemistries today showed remarkable improvement of the calcium, which has now normalized to 10.4. Chemistries showed BUN of 12, sodium 137, potassium 3.3, chloride 104, CO2 of 26, glucose 127, and creatinine 1. Her glycemic levels are fluctuating, but improved and have ranged from 116 to 239 mg/dL. ASSESSMENT AND PLAN: So, at this time, we will continue the oral hypoglycemic therapy as given with Januvia at 100 mg daily and metformin at 500 mg in the morning and 1 g in the evening as ordered. No indication at this time for any kind of calcium management as she has improved accordingly with just the gross IV hydration as given. She will follow with medical doctor as outpatient medical and diabetic management. Gin Celis MD
--- NOTE | 2018-01-19 08:06 | DS ---
Copied To: Vipin Lopez DO Attending MD: Vipin Lopez DO HISTORY OF PRESENT ILLNESS: I had a discussion with the family yesterday to make a decision whether they want a surgery to the gallbladder or they want to take her to her daughter's or to go to subacute rehab. They understand all the problems at this time, and they are refusing surgery even though Dr. Bansal has not seen yet. MEDICATIONS: She is on Aggrenox, Berocca, Crestor, Drisdol, Dulcolax, Glucophage, Hexavitamin, Januvia, Lovenox, Norvasc, Protonix. I stopped the IV fluids, Toprol, Xanax, Zofran, Zoloft, and now Cozaar as the blood pressure was little bit high. PHYSICAL EXAMINATION: GENERAL: She is resting in bed. No complaints. No chest pain or shortness of breath. No abdominal pain. She is eating and going to the bathroom well. VITAL SIGNS: She has a 97.5 temperature; 79 pulse; 182/72 blood pressure, that is why I added the Cozaar; 20 respiratory rate; and 95% O2 saturation on room air. HEENT: Head is atraumatic and normocephalic. HEART: Regular rate. LUNGS: Clear to auscultation. ABDOMEN: Soft, nontender. Positive bowel sounds. EXTREMITIES: No edema. NEUROLOGIC: With left-sided weakness, from a stroke. LABORATORY DATA: She has 6.5 white count, 10.8 hemoglobin, 33 hematocrit, and 229 platelets. She has 138 sodium, potassium 3.7, BUN is 15, creatinine 1.1, GFR is 48, sugar is 133, calcium is 10.8, phosphorus 2.8, magnesium 1.4, she was replaced. Total bilirubin is 0.2, AST is 23, ALT is 42, alkaline phosphatase 184, protein 6.2. Triglycerides 129, cholesterol 112. Vitamin D was 19.3 and TSH was 0.76, we replaced the vitamin D. ASSESSMENT AND PLAN: I called the psychiatric social worker and I will be discharging her because she is going to make a decision whether with home with her daughter or subacute rehab. We will continue with aggressive treatment and care. She has cholecystitis. She will be discharged today. Vipin Lopez DO AGUSTINA
--- NOTE | 2018-01-19 16:44 | CARD ---
APPROVED REPORT Date of service: 01/15/2018 EKG Measurement Heart [id number] <Conclusion> Sinus rhythm with 1st degree AV block Otherwise normal ECG
== END 2018-01-18 13:11 | disposition home or self-care (01) | DRG 445 ==
LOC: C.ER 16:37 → C.9E 23:08 → C.6T 23:08
PROVIDERS: ADMIT Family Medicine; ATTEND Family Medicine
DX: K80.10 Calculus of gallbladder with chronic cholecystitis without obstruction (principal); I69.354 Hemiplegia and hemiparesis following cerebral infarction affecting left non-dominant side; E11.22 Type 2 diabetes mellitus with diabetic chronic kidney disease; E11.319 Type 2 diabetes mellitus with unspecified diabetic retinopathy without macular edema; E78.5 Hyperlipidemia, unspecified; E86.0 Dehydration; I12.9 Hypertensive chronic kidney disease with stage 1 through stage 4 chronic kidney disease, or unspecified chronic kidney disease; N18.9 Chronic kidney disease, unspecified; E83.52 Hypercalcemia

== ENCOUNTER 2018-06-14 05:31 | Inpatient (IN) | payer MEDICARE ==
[2018-06-14] MEDS ORDERED: Sodium Chloride 0.9% 1,000 ML IV ONE ×2 (05:57→06:47)
--- NOTE | 2018-06-14 06:04 | C.PDOC ---
History Of Present Illness 77 y/o female with a PMHx of HTN, DM, and CVA (with residual left side weakness), presents to the ED complaining of epigastric upper abdominal pain, worse over the past week. No associated nausea, vomiting, or diarrhea. Patient is also complaining of SOB. Denies any fever or chills. Patient has hx of gall bladder disease in the past. <Steve Shafer - Last Filed: 06/14/18 12:49> <Rehana Uriostegui - Last Filed: 06/14/18 10:01> History Per: Patient History/Exam Limitations: no limitations Onset/Duration Of Symptoms: Days Current Symptoms Are (Timing): Worse Location Of Pain/Discomfort: Epigastric Associated Symptoms: Other (SOB) <Steve Shafer - Last Filed: 06/14/18 12:49> Time Seen by Provider: 06/14/18 05:48 Chief Complaint (Nursing): Shortness Of Breath Past Medical History Vital Signs: Last Vital Signs Temp 98.6 F 06/14/18 05:42 Pulse 66 06/14/18 08:49 Resp 16 06/14/18 08:49 BP 167/33 H 06/14/18 08:49 Pulse Ox 97 06/14/18 08:49 <Rehana Uriostegui - Last Filed: 06/14/18 10:01> Reviewed: Historical Data, Nursing Documentation, Vital Signs Vital Signs: Last Vital Signs Temp 98.6 F 06/14/18 05:42 Pulse 79 06/14/18 05:42 Resp 16 06/14/18 05:42 BP 208/76 H 06/14/18 05:42 Pulse Ox 97 06/14/18 05:42 - Medical History PMH: CVA (affecting left side), Diabetes (type 2), HTN Denies: Chronic Kidney Disease Family History: States: Unknown Family Hx - Social History Hx Tobacco Use: No Hx Alcohol Use: No Hx Substance Use: No - Immunization History Hx Tetanus Toxoid Vaccination: No Hx Influenza Vaccination: No Hx Pneumococcal Vaccination: No <Steve Shafer - Last Filed: 06/14/18 12:49> Review Of Systems Constitutional: Negative for: Fever, Chills Cardiovascular: Negative for: Chest Pain Respiratory: Positive for: Shortness of Breath Gastrointestinal: Positive for: Abdominal Pain. Negative for: Vomiting, Diarrhea, Hematochezia Neurological: Negative for: Change in Speech, Confusion, Altered Mental Status <ShaferSteve R - Last Filed: 06/14/18 12:49> Physical Exam - Physical Exam Appears: Non-toxic, No Acute Distress Skin: Warm, Dry Head: Atraumatic, Normacephalic Eye(s): bilateral: Normal Inspection, PERRL, EOMI Oral Mucosa: Moist Neck: Normal ROM Chest: Symmetrical Cardiovascular: Rhythm Regular, No Murmur Respiratory: Rales (occasional rales at the bases), No Rhonchi, No Wheezing Gastrointestinal/Abdominal: Soft, Tenderness (to the RUQ and epigastric area), No Guarding, No Rebound Back: Normal Inspection Extremity: Left: Other (Contracture of left hand, no weakness), Bilateral: Atraumatic, Normal Color And Temperature Pulses: Left Radial: Normal, Right Radial: Normal Neurological/Psych: Oriented x3, Normal Speech <ShaferTabathaSteve R - Last Filed: 06/14/18 12:49> ED Course And Treatment - Laboratory Results Result Diagrams: 06/14/18 06:14 06/14/18 06:14 Lab Results: Puncture Site R rad 06/14/18 06:47 pCO2 39 mm/Hg (35-45) 06/14/18 06:47 pO2 70 mm/Hg (80-100) L 06/14/18 06:47 HCO3 24.5 mmol/L (21-28) 06/14/18 06:47 ABG pH 7.40 (7.35-7.45) 06/14/18 06:47 ABG Total CO2 25.4 mmol/L (22-28) 06/14/18 06:47 ABG O2 Saturation 94.4 % (95-98) L 06/14/18 06:47 ABG Base Excess -0.5 mmol/L (-2.0-3.0) 06/14/18 06:47 ABG Hemoglobin 9.7 g/dL (11.7-17.4) L 06/14/18 06:47 ABG Carboxyhemoglobin 0.4 % (0.5-1.5) L 06/14/18 06:47 POC ABG HHb (Measured) 5.5 % (0.0-5.0) H 06/14/18 06:47 ABG Methemoglobin 0.8 % (0.0-3.0) 06/14/18 06:47 Brendan Test Pos 06/14/18 06:47 A-a O2 Difference 31.0 mm/Hg 06/14/18 06:47 Respiratory Index 0.4 06/14/18 06:47 Hgb O2 Saturation 93.3 % (95.0-98.0) L 06/14/18 06:47 FiO2 21.0 % 06/14/18 06:47 D-Dimer, Quantitative 308 ng/mlDDU (0-243) H 06/14/18 06:27 NT-Pro-B Natriuret Pep 2810 pg/mL (0-900) H 06/14/18 06:14 Total Bilirubin 0.4 mg/dL (0.2-1.3) 06/14/18 06:14 AST 28 U/L (14-36) 06/14/18 06:14 ALT 37 U/L (9-52) 06/14/18 06:14 Alkaline Phosphatase 69 U/L (38-126) 06/14/18 06:14 Total Protein 7.6 g/dL (6.3-8.3) 06/14/18 06:14 Albumin 4.4 g/dL (3.5-5.0) 06/14/18 06:14 Globulin 3.2 gm/dL (2.2-3.9) 06/14/18 06:14 Albumin/Globulin Ratio 1.3 (1.0-2.1) 06/14/18 06:14 Lipase 185 U/L (23-300) 06/14/18 06:14 Urine Color Straw (YELLOW) 06/14/18 07:25 Urine Clarity Clear (Clear) 06/14/18 07:25 Urine pH 6.0 (5.0-8.0) 06/14/18 07:25 Ur Specific [place] 1.009 (1.003-1.030) 06/14/18 07:25 Urine Protein 2+ mg/dL (NEGATIVE) H 06/14/18 07:25 Urine Glucose (UA) Normal mg/dL (Normal) 06/14/18 07:25 Urine Ketones Negative mg/dL (NEGATIVE) 06/14/18 07:25 Urine Blood Negative (NEGATIVE) 06/14/18 07:25 Urine Nitrate Negative (NEGATIVE) 06/14/18 07:25 Urine Bilirubin Negative (NEGATIVE) 06/14/18 07:25 Urine Urobilinogen Normal mg/dL (0.2-1.0) 06/14/18 07:25 Ur Leukocyte Esterase Neg Angel/uL (Negative) 06/14/18 07:25 Urine WBC (Auto) < 1 /hpf (0-5) 06/14/18 07:25 Urine RBC (Auto) < 1 /hpf (0-3) 06/14/18 07:25 Hyaline Casts 0-2 /lpf (0-2) 06/14/18 07:25 <Rehana Uriostegui - Last Filed: 06/14/18 10:01> - Laboratory Results Result Diagrams: 06/14/18 06:14 06/14/18 06:14 ECG: Interpreted By Me, Viewed By Me ECG Rhythm: Sinus Rhythm, 1st Degree HB ECG Interpretation: No Acute Changes, Abnormal Interpretation Of ECG: Sinus rhythn with 1st degree av block, QS in V1 V2 poor R - wave progression, no acute changes, abnormal tracings. Rate From EC O2 Sat by Pulse Oximetry: 97 (RA) Pulse Ox Interpretation: Normal Progress Note: Blood work and urine sent to the lab. EKG and CXR reviewed. Administered IV fluids, 30 mg IV Toradol, and 20 mg IV Pepcid. <Steve Shafer - Last Filed: 06/14/18 12:49> Medical Decision Making Medical Decision Making: Re-evaluation as patient was turned over to myself (Dr. Uriostegui) by Dr. Shafer (overnight provider): * 09:45 - Spoke with Vipin Lott which recommended to give lasix and accepted patient under his admission. Consult with Dr.Mitchell Joya. <Rehana Uriostegui - Last Filed: 06/14/18 10:01> Disposition <Rehana Uriostegui - Last Filed: 06/14/18 10:01> Counseled Patient/Family Regarding: Diagnosis - Disposition Disposition Time: 07:00 <Steve Shafer - Last Filed: 06/14/18 12:49> - Disposition Condition: STABLE - Clinical Impression Clinical Impression: Dyspnea, CHF (congestive heart failure) - Scribe Statement The provider has reviewed the documentation as recorded by the Jerel Huizar Provider Attestation: All medical record entries made by the Jerel were at my direction and personally dictated by me. I have reviewed the chart and agree that the record accurately reflects my personal performance of the history, physical exam, medical decision making, and the department course for this patient. I have also personally directed, reviewed, and agree with the discharge instructions and disposition. <Steve Shafer R - Last Filed: 06/14/18 12:49> Physician Patient Turnover Patient Signed Over To: Rehana Uriostegui (Pending CTA, ABG and US of abdomen ) <Steve Shafer - Last Filed: 06/14/18 12:49>
[2018-06-14] MEDS ORDERED: Sodium Chloride 0.9% 1,000 ML ONE (06:14)
[2018-06-14 06:18] LABS: BASO # 0.1 K/uL (0.0-0.2); BASO % 0.8 % (0.0-2.0); EOS # 0.2 K/uL (0.0-0.7); EOS % 1.5 % (0.0-4.0); HEMOGLOBIN 10.4 g/dL (11.0-16.0); LYMPH # 1.1 K/uL (1.0-4.3); LYMPH % 10.1 % (20.0-40.0); MEAN CELL VOLUME 85.5 fL (81.0-99.0); MEAN CORPUSCULAR HEMOGLOBIN 28.8 pg (27.0-31.0); MEAN CORPUSCULAR HGB CONC 33.7 g/dL (33.0-37.0); MEAN PLATELET VOLUME 9.5 fL (7.2-11.7); MONO # 0.5 K/uL (0.0-0.8); MONO % 4.4 % (0.0-10.0); NEUT % 83.2 % (50.0-75.0); RBC 3.61 Mil/uL (3.80-5.20); RED CELL DISTRIBUTION WIDTH 15.1 % (11.5-14.5); WHITE BLOOD COUNT 10.8 K/uL (4.8-10.8)
[2018-06-14 06:29] LABS: ALB/GLOB RATIO 1.3 (1.0-2.1); ALBUMIN 4.4 g/dL (3.5-5.0); CALCIUM 9.2 mg/dl (8.6-10.4)
[2018-06-14] MEDS ORDERED: Sodium Chloride 0.9% 500 ML IV ONE (06:47)
[2018-06-14 06:58] LABS: ABG ALLEN TEST POS; ARTERIAL BLOOD GAS HCO3 24.5 mmol/L (21-28); ARTERIAL BLOOD GAS HEMOGLOBIN 9.7 g/dL (11.7-17.4); ARTERIAL BLOOD GAS O2 SAT 94.4 % (95-98); ARTERIAL BLOOD GAS PCO2 39 mm/Hg (35-45); ARTERIAL BLOOD GAS PO2 70 mm/Hg (80-100); ARTERIAL BLOOD GAS TCO2 25.4 mmol/L (22-28)
--- NOTE | 2018-06-14 07:46 | RAD ---
Chest x-ray single frontal view HISTORY: Shortness of breath. COMPARISON: 01/15/2018 FINDINGS: Diffuse increased interstitial lung markings suggestive for moderate venous congestion and or diffuse interstitial infiltrates. Bilateral hilar prominence; right greater than left. Atherosclerotic calcification at the aortic knob. Tortuous ectatic aorta. Mild cardiomegaly. Degenerative changes in the spine and shoulders. Impression: Diffuse increased interstitial lung markings suggestive for moderate venous congestion and or diffuse interstitial infiltrates. Bilateral hilar prominence; right greater than left. Atherosclerotic calcification at the aortic knob. Tortuous ectatic aorta. Mild cardiomegaly.
[2018-06-14 07:58] LABS: URINE BILIRUBIN NEGATIVE (NEGATIVE); URINE BLOOD NEGATIVE (NEGATIVE); URINE CLARITY Clear (Clear); URINE COLOR Straw (YELLOW); URINE GLUCOSE (UA) NORMAL (Normal); URINE HYALINE CAST 0-2 /lpf (0-2); URINE LEUKOCYTE ESTERASE NEG Leu/uL (Negative); URINE UROBILINOGEN NORMAL mg/dL (0.2-1.0)
[2018-06-14] MEDS ORDERED: Iodixanol 320 MG/ML 100 ML BOTTLE IV ONE (08:02)
[2018-06-14 08:03] LABS: URINE PROTEIN 2+ mg/dL (NEGATIVE)
--- NOTE | 2018-06-14 08:39 | US ---
Date of service: 06/14/2018 HISTORY: upper abd pain COMPARISON: None. TECHNIQUE: Sonographic evaluation of the right upper quadrant of the abdomen. FINDINGS: LIVER: Measures 9.8 cm in length. Normal echogenicity of the liver parenchyma. No mass. No intrahepatic bile duct dilatation. GALLBLADDER: Cholelithiasis identified in the dependent portion of mildly distended gallbladder without suspicious inflammatory sonographic findings related to the gallbladder. COMMON BILE DUCT: Measures 2.8 mm. No stones. No dilatation. PANCREAS: Unremarkable as visualized. No mass. No ductal dilatation. RIGHT KIDNEY: Measures 9.9 cm in length. Mildly echogenic renal parenchyma may indicate intrinsic medical renal disease. No urolithiasis or cystic or solid masses identified. No hydronephrosis. AORTA: No aneurysmal dilatation. IVC: Unremarkable. OTHER FINDINGS: None . IMPRESSION: Cholelithiasis is identified within the dependent gallbladder without sonographic evidence of biliary tree dilatation as imaged. No suspicious mural thickening or pericholecystic fluid collection evident. Mildly echogenic renal parenchyma may indicate intrinsic medical renal disease. No hydronephrosis.
--- NOTE | 2018-06-14 09:25 | CT ---
Date of service: 06/14/2018 PROCEDURE: CT Chest with contrast (Pulmonary Angiogram) HISTORY: Tachypnea/ elevated D-dimer COMPARISON: None available. TECHNIQUE: Axial computed tomography images were obtained of the chest in the pulmonary arterial phase of enhancement. Coronal and sagittal reformatted images were created and reviewed. Intravenous contrast dose: Visipaque 320, 100 cc Radiation dose: Total exam DLP = 489.32 mGy-cm. This CT exam was performed using one or more of the following dose reduction techniques: Automated exposure control, adjustment of the mA and/or kV according to patient size, and/or use of iterative reconstruction technique. FINDINGS: PULMONARY ARTERIES: No definitive pulmonary embolism identified. There is tremendous artifacts related to hyperdense any contrast material in the superior vena cava generating radial beam hardening artifacts throughout the great vasculature. AORTA: No acute findings. No thoracic aortic aneurysm. Calcific atherosclerotic changes are seen related to the thoracic aorta. LUNGS: Central airways appear clear. No infiltrates are identified bilaterally. No pulmonary consolidation. 5.5 mm nodule seen at the left apex subpleural in location, noncalcified. Follow-up node low-dose chest CT is advised to demonstrate stability of this finding in 12 months. PLEURAL SPACES: Unremarkable. No effusion or pneumothorax. HEART: Cardiomegaly is identified. No pericardial effusion. No definite pulmonary vascular congestion. LYMPH NODES: No significant lymphadenopathy. BONES, CHEST WALL: Unremarkable. No fracture or destructive lesion OTHER FINDINGS: Incidental cholelithiasis and bilateral adrenal hyperplasia. IMPRESSION: 1. No definite CT evidence of pulmonary embolus. Beam hardening artifacts from hyperdense iodinated contrast in the superior vena cava generate artifacts obscuring the evaluation somewhat. 2. No acute infiltrate, pleural effusion or pneumothorax bilaterally. Mild cardiomegaly. No pulmonary vascular congestion. 3. 5.5 mm noncalcified nodule subpleural left apex for which follow-up chest CT without contrast is advised in 12 months to demonstrate stability or resolution if not already proven benign. 4. Incidental cholelithiasis and bilateral adrenal hyperplasia.
[2018-06-14] MEDS ORDERED: Azithromycin 500 MG in Sodium Chloride 0.9% 250 ML IVPB SCH (15:00)
[2018-06-14] MEDS ORDERED: Bisacodyl 5mg EC Tab PO PRN (15:00)
--- NOTE | 2018-06-14 16:01 | CARD ---
APPROVED REPORT Date of service: 06/14/2018 EKG Measurement Heart [id number] <Conclusion> Sinus rhythm with 1st degree AV block Possible Left atrial enlargement Septal infarct, age undetermined Abnormal ECG
[2018-06-14] MEDS: Metoprolol Succinate 50 mg XL Tab PO SCH (17:37)
[2018-06-14] MEDS: Aspirin-Dipyridamole 200-25 mg ER Cap PO SCH (21:58)
--- NOTE | 2018-06-15 00:11 | HP ---
HISTORY OF PRESET ILLNESS: I was called on to the emergency room to take a look at her. She is having epigastric abdominal pain, worse over the week. No associated nausea or vomiting. She has had shortness of breath also. She has history of gallbladder disease. This is worse over the past few days. She is a 77-year-old white female who I know very well from house call, has a past medical history of hypertension, diabetes, and CVA with left-sided weakness. She does have a history of gallstones. SOCIAL HISTORY: She does not smoke. She does not drink. She does not do drugs. ALLERGIES: SHE HAS NO KNOWN DRUG ALLERGIES. REVIEW OF SYSTEMS: No acute vision or hearing loss. No chest pain or shortness of breath. The abdominal discomfort, she felt like it was raising in the abdomen. No nausea, vomiting, constipation, or diarrhea. She has also no chills, no chest pain. There was shortness of breath. There was abdominal pain. No nausea or vomiting. PHYSICAL EXAMINATION: VITAL SIGNS: She has 98.6 temp, pulse 66, respiratory rate 16, blood pressure 167/32, and oxy saturation 97%. GENERAL: She is alert and oriented. HEENT: Head is atraumatic and normocephalic. Extraocular muscles are intact. HEART: Regular rate. LUNGS: Decreased breath sounds, but clear to auscultation. ABDOMEN: Soft and soft with positive bowel sounds. No guarding, no rebound, and no CVA tenderness. EXTREMITIES: No edema. NEUROLOGIC: She has left-sided weakness from an old stroke. LABORATORY DATA: She had multiple tests done. She has white count 10.8, hemoglobin 10.4, hematocrit 38.8, platelets 196. Sodium 134, potassium 5.2. D-dimer is 308. Oxygen saturation 93%. BUN 32, creatinine 1.1, GFR is 48, sugar is 206, calcium is 9.2. Total bili is 0.4, AST is 28, ALT is 27, alkaline phosphatase is 90. BNP is high . Total protein is 7.6 and lipase is 185. Urine is clean. CAT scan of the chest showed infiltrates. IMPRESSION AND PLAN: She is here for congestive heart failure picture with the chest x-ray showing congestion. Also, there are some infiltrates and gallstones. I had a consult with Pulmonary, Cardiovascular, and Gastroenterology. To be on intravenous Lasix, intravenous Rocephin, and intravenous Zithromax plus her regular medications, and hopefully she will improve. Get physical therapy. Vipin Lopez DO [email or web address]
--- NOTE | 2018-06-15 07:54 | CP.PCM.CON ---
<KeikoFranco - Last Filed: 06/15/18 10:12> History of Present Illness - History of Present Illness History of Present Illness: GI Fellow PGY4, consult note. Jess Patel is a very pleasant 77F with history of CVA who presented with abdominal complaints. Patient is reporting to me she never had abdominal pain, nausea, vomiting, problems with eating or bowel movements. She says she has just been feeling tired. She is doing well this AM and has not complaints. She is tolerating diet. Patient was seen 01/23 by GI/surgery team for biliary colic and ultimately elected for conservative management. She states she does not see a GI doctor regularly and has never had a colonosocpy or EGD. Labs and imaging reviewed. Liver tests are normal. U/S shows gallstones with mild GB distension and NO inflammatory changes. PMHx - CVA on Aggrenox, DM PSHx - none FMHx - No GI related cancers SocHx - Denies tobacco or alcohol use. 12pt ROS completed and negative except for above. Past Patient History - Infectious Disease Hx of Infectious Diseases: None - Past Medical History & Family History Past Medical History?: Yes - Past Social History Smoking Status: Never Smoked - CARDIAC Hx Hypertension: Yes - PULMONARY Hx Respiratory Disorders: No - NEUROLOGICAL Hx Neurological Disorder: Yes HX Cerebrovascular Accident: Yes (left side hemiparesis) - HEENT Hx HEENT Problems: No - RENAL Hx Chronic Kidney Disease: No - ENDOCRINE/METABOLIC Hx Endocrine Disorders: Yes Hx Diabetes Mellitus Type 2: Yes - HEMATOLOGICAL/ONCOLOGICAL Hx Blood Disorders: No Hx Cirrhosis: No Hx Hepatitis A: No Hx Hepatitis B: No Hx Hepatitis C: No - INTEGUMENTARY Hx Dermatological Problems: No - MUSCULOSKELETAL/RHEUMATOLOGICAL Hx Musculoskeletal Disorders: No Hx Falls: Yes - GASTROINTESTINAL Hx Gastrointestinal Disorders: No - GENITOURINARY/GYNECOLOGICAL Hx Genitourinary Disorders: No - PSYCHIATRIC Hx Substance Use: No - SURGICAL HISTORY Hx Surgeries: Yes Hx Cataract Extraction: Yes Hx Tubal Ligation: Yes - ANESTHESIA Hx Anesthesia: Yes Hx Anesthesia Reactions: No Hx Malignant Hyperthermia: No Meds Allergies/Adverse Reactions: Allergies Allergy/AdvReac Type Severity Reaction Status Date / Time No Known Allergies Allergy Verified 01/15/18 16:47 - Medications Medications: Current Medications Alprazolam (Xanax) 0.5 mg PO BID PRN PRN Reason: Constipation Stop: 06/21/18 14:20 Amlodipine Besylate (Norvasc) 10 mg PO DAILY [facility] Last Admin: 06/14/18 17:37 Dose: 10 mg Bisacodyl (Dulcolax) 5 mg PO DAILY PRN PRN Reason: Constipation Dipyridamole/Aspirin (Aggrenox 25-200 Mg) 1 ea PO BID [facility] Last Admin: 06/14/18 21:58 Dose: 1 ea Enoxaparin Sodium (Lovenox) 30 mg SC DAILY [facility] Furosemide (Lasix) 40 mg IVP DAILY [facility] Losartan Potassium (Cozaar) 100 mg PO DAILY [facility] Last Admin: 06/14/18 17:36 Dose: 100 mg Metformin HCl (Glucophage) 500 mg PO TIDCC [facility] Last Admin: 06/14/18 17:37 Dose: 500 mg Metoprolol Succinate (Toprol Xl) 50 mg PO DAILY [facility] Last Admin: 06/14/18 17:37 Dose: 50 mg Multivitamins/Minerals (Therapeutic-M Tab) 1 tab PO 0800 [facility] [id number] Ethyl Esters (Lovaza) 1 gm PO DAILY [facility] Rosuvastatin Calcium (Crestor) 5 mg PO QPM [facility] Last Admin: 06/14/18 17:36 Dose: 5 mg Sertraline HCl (Zoloft) 50 mg PO DAILY [facility] Last Admin: 06/14/18 17:37 Dose: 50 mg Sitagliptin Phosphate (Januvia) 25 mg PO DAILY [facility] Last Admin: 06/14/18 17:37 Dose: 25 mg Physical Exam - Constitutional Appears: Well, Non-toxic - Head Exam Head Exam: ATRAUMATIC, NORMAL INSPECTION - Eye Exam Eye Exam: EOMI, Normal appearance - ENT Exam ENT Exam: Mucous Membranes Moist, Normal Exam - Respiratory Exam Respiratory Exam: Clear to Auscultation Bilateral, NORMAL BREATHING PATTERN. absent: Rales, Wheezes - Cardiovascular Exam Cardiovascular Exam: REGULAR RHYTHM, +S1, +S2 - GI/Abdominal Exam GI & Abdominal Exam: Normal Bowel Sounds, Soft. absent: Organomegaly, Tenderness - Extremities Exam Extremities exam: Positive for: normal inspection. Negative for: pedal edema - Neurological Exam Neurological exam: Alert, CN II-XII Intact, Oriented x3 - Psychiatric Exam Psychiatric exam: Normal Affect, Normal Mood - Skin Skin Exam: Normal Color, Warm Results - Vital Signs Recent Vital Signs: Last Vital Signs Temp 98.3 F 06/14/18 23:00 Pulse 71 06/15/18 04:00 Resp 20 06/14/18 23:00 BP 147/68 06/14/18 23:00 Pulse Ox 96 06/14/18 23:00 - Labs Result Diagrams: 06/14/18 06:14 06/14/18 06:14 Labs: Laboratory Results - last 24 hr 06/14/18 06/14/18 06/14/18 07:25 16:18 21:00 POC Glucose (mg/dL) 203 H 175 H Urine Color Straw Urine Clarity Clear Urine pH 6.0 Ur Specific [place] 1.009 Urine Protein 2+ H Urine Glucose (UA) Normal Urine Ketones Negative Urine Blood Negative Urine Nitrate Negative Urine Bilirubin Negative Urine Urobilinogen Normal Ur Leukocyte Esterase Neg Urine WBC (Auto) < 1 Urine RBC (Auto) < 1 Hyaline Casts 0-2 Assessment & Plan - Assessment and Plan (Free Text) Assessment: #Gallstones, asymptomatic #h/o CVA on Aggrenox #DM #Chronic anemia PLAN: -U/S and labs reviewed. No acute inflammatory changes, CBD normal. Liver tests normal. -Patient was previously seen 01/23 for biliary colic and elected conservative management. Continue to monitor, no need for surgical evaluation at this time. -Patient defers future colonoscopy/EGD. Recommend GI outpatient visit for colonoscopy in setting of chronic anemia. Case discussed with Dr. Becker, see attestation. - Date & Time Date: 06/15/18 Time: 07:55 <Jerry Becker Y - Last Filed: 06/15/18 12:40> Meds - Medications Medications: Current Medications Alprazolam (Xanax) 0.5 mg PO BID PRN PRN Reason: Constipation Stop: 06/21/18 14:20 Amlodipine Besylate (Norvasc) 10 mg PO DAILY [facility] Last Admin: 06/15/18 10:24 Dose: 10 mg Bisacodyl (Dulcolax) 5 mg PO DAILY PRN PRN Reason: Constipation Dipyridamole/Aspirin (Aggrenox 25-200 Mg) 1 ea PO BID [facility] Last Admin: 06/15/18 10:24 Dose: 1 ea Enoxaparin Sodium (Lovenox) 30 mg SC DAILY [facility] Last Admin: 06/15/18 10:23 Dose: 30 mg Furosemide (Lasix) 40 mg IVP DAILY [facility] Last Admin: 06/15/18 10:28 Dose: 40 mg Losartan Potassium (Cozaar) 100 mg PO DAILY [facility] Last Admin: 06/15/18 10:24 Dose: 100 mg Metformin HCl (Glucophage) 500 mg PO TIDCC [facility] Last Admin: 06/15/18 08:19 Dose: 500 mg Metoprolol Succinate (Toprol Xl) 50 mg PO DAILY [facility] Last Admin: 06/15/18 10:24 Dose: 50 mg Multivitamins/Minerals (Therapeutic-M Tab) 1 tab PO 0800 [facility] Last Admin: 06/15/18 08:19 Dose: 1 tab [id number]-[id number] Ethyl Esters (Lovaza) 1 gm PO DAILY [facility] Last Admin: 06/15/18 10:24 Dose: 1 gm Rosuvastatin Calcium (Crestor) 5 mg PO QPM [facility] Last Admin: 06/14/18 17:36 Dose: 5 mg Sertraline HCl (Zoloft) 50 mg PO DAILY [facility] Last Admin: 06/15/18 10:28 Dose: 50 mg Sitagliptin Phosphate (Januvia) 25 mg PO DAILY [facility] Last Admin: 06/15/18 10:28 Dose: 25 mg Results - Vital Signs Recent Vital Signs: Last Vital Signs Temp 99.2 F 06/15/18 07:00 Pulse 71 06/15/18 07:15 Resp 20 06/15/18 07:00 BP 154/54 H 06/15/18 10:28 Pulse Ox 99 06/15/18 07:00 - Labs Result Diagrams: 06/14/18 06:14 06/14/18 06:14 Labs: Laboratory Results - last 24 hr 06/14/18 06/14/18 06/15/18 16:18 21:00 06:01 POC Glucose (mg/dL) 203 H 175 H 135 H Attending/Attestation - Attestation I have personally seen and examined this patient.: Yes I have fully participated in the care of the patient.: Yes I have reviewed all pertinent clinical information: Yes Notes (Text): 06/15/18 12:35 I have seen and examined patient with GI fellow. Agree with above documentation with the following additions. In brief, this is a 77 year old pleasant female with history of CVA with residual L sided weakness, DM, CHF who presents to hospital with progressive dyspnea on exertion, currently being treated for CHF exacerbation. GI called for evaluation of abdominal pain which patient describes was happening intermittently for past few weeks. She currently denies any abdominal pain but describes previous epigastric and RUQ pain associated with nausea. She denies vomiting, fever/chills, weight loss, rectal bleeding, jaundice, pruritis, or change in bowel habits. No prior endoscopic evaluation. Cholelithiasis - asymptomatic currently DM Dyspnea, CHF CVA - Low fat diabetic diet as tolerated - Abdominal US reviewed by me showing cholelithiasis without CBD dilation - LFTs normal, continue to monitor - Patient would benefit from outpatient elective EGD/colonoscopy for workup of anemia. Would consider surgical consultation if patient develops recurrent abdominal pain. No plan for further GI intervention at this time, will sign off case. Please reconsult as necessary, thank you.
[2018-06-15] MEDS: Multivitamin With Minerals Tab PO SCH (08:19)
--- NOTE | 2018-06-15 08:40 | PN ---
DATE: 06/15/2018 SUBJECTIVE: She is resting comfortably in bed. She tells me she is starting to feel little bit better. She feels stronger. She is currently on Aggrenox, Cozaar, Crestor, Dulcolax, metformin, Januvia, Lasix IV, Lovaza, Lovenox, Norvasc, Pepcid, Rocephin, IV fluids, multivitamin, Toprol, Toradol, Xanax, Zoloft, and Zithromax. PHYSICAL EXAMINATION: VITAL SIGNS: She has a 98.3 temperature, 71 pulse, 147/68 blood pressure, 20 respiratory rate, 96% O2 sat on room air. HEENT: Atraumatic, normocephalic. GENERAL: Alert, oriented, comfortable; does not sleep that great but still is better. HEART: Regular rate. LUNGS: Decreased breath sounds but clear to auscultation. ABDOMEN: Soft. EXTREMITIES: No edema. She has paralysis and left-sided weakness secondary to a stroke. She had blood test done. She has 10.8 white count, 10.4 hemoglobin, 192 platelets that was yesterday, this morning it was not back yet. Sodium 134, potassium 5.1, BUN 33, creatinine 1.1. Last blood sugar was 175. Calcium 9.2, total bili is 0.4, AST is 20, ALT is 37, BMP is 2810, lipase 185. Chest x-ray showed pneumonia and CHF. On CAT scan, it showed a CHF and no pneumonia. I will stop Rocephin and Zithromax. There were consults with Pulmonary, Cardio, and GI for gallstones that were found. Need physical therapy to take a look at her. Continue to diurese for the CHF. I do think she is getting better. We will wait for labs and checking tomorrow. Out of bed to chair. Vipin Lopez DO MTDD
[2018-06-15] MEDS ORDERED: Metoprolol Succinate 50 mg XL Tab PO SCH (10:00)
[2018-06-15] MEDS: Enoxaparin 30 mg Syringe SC SCH (10:23)
[2018-06-15] MEDS: Omega-3-Acid Ethyl Esters 1 GM Cap PO SCH (10:24)
[2018-06-15] MEDS: Aspirin-Dipyridamole 200-25 mg ER Cap PO SCH ×2 (10:24→17:41)
[2018-06-15] MEDS: Metoprolol Succinate 50 mg XL Tab PO SCH (10:24)
--- NOTE | 2018-06-15 16:27 | CP.PCM.CON ---
History of Present Illness - History of Present Illness History of Present Illness: The pt is a 77 year old woman with HTN, DM and a prior stroke. No known CAD. The patient has GB disease, and was worked up 01/23 by GI, medical management was advised. Pt now admitted for epigastric pain. While being worked up, her cxr was read as mild congestion, but a ct of the chest reports no congestion. Also, bnp is elevated. pt denies dyspnea, currently lying flat without a problem. The pt says that she is able to walk and has not had BYERS or chest pain. ECg shows nsr, mild first deg AVB, mild non specific st changes, Possible old Sepal [place] Review of Systems - Review of Systems All systems: reviewed and no additional remarkable complaints except (as above.) Past Patient History - Infectious Disease Hx of Infectious Diseases: None - Past Medical History & Family History Past Medical History?: Yes - Past Social History Smoking Status: Never Smoked - CARDIAC Hx Hypertension: Yes - PULMONARY Hx Respiratory Disorders: No - NEUROLOGICAL HX Cerebrovascular Accident: Yes (left side) - HEENT Hx HEENT Problems: No - RENAL Hx Chronic Kidney Disease: No - ENDOCRINE/METABOLIC Hx Diabetes Mellitus Type 2: Yes - HEMATOLOGICAL/ONCOLOGICAL Hx Blood Disorders: No Hx Cirrhosis: No Hx Hepatitis A: No Hx Hepatitis B: No Hx Hepatitis C: No - INTEGUMENTARY Hx Dermatological Problems: No - MUSCULOSKELETAL/RHEUMATOLOGICAL Hx Musculoskeletal Disorders: No Hx Falls: Yes - GASTROINTESTINAL Hx Gastrointestinal Disorders: No - GENITOURINARY/GYNECOLOGICAL Hx Genitourinary Disorders: No - PSYCHIATRIC Hx Substance Use: No - SURGICAL HISTORY Hx Surgeries: Yes Hx Cataract Extraction: Yes Hx Tubal Ligation: Yes - ANESTHESIA Hx Anesthesia: Yes Hx Anesthesia Reactions: No Hx Malignant Hyperthermia: No Meds Allergies/Adverse Reactions: Allergies Allergy/AdvReac Type Severity Reaction Status Date / Time No Known Allergies Allergy Verified 01/15/18 16:47 - Medications Medications: Current Medications Alprazolam (Xanax) 0.5 mg PO BID PRN PRN Reason: Constipation Stop: 06/21/18 14:20 Amlodipine Besylate (Norvasc) 10 mg PO DAILY [facility] Last Admin: 06/15/18 10:24 Dose: 10 mg Bisacodyl (Dulcolax) 5 mg PO DAILY PRN PRN Reason: Constipation Dipyridamole/Aspirin (Aggrenox 25-200 Mg) 1 ea PO BID [facility] Last Admin: 06/15/18 10:24 Dose: 1 ea Enoxaparin Sodium (Lovenox) 30 mg SC DAILY [facility] Last Admin: 06/15/18 10:23 Dose: 30 mg Furosemide (Lasix) 40 mg IVP DAILY [facility] Last Admin: 06/15/18 10:28 Dose: 40 mg Losartan Potassium (Cozaar) 100 mg PO DAILY [facility] Last Admin: 06/15/18 10:24 Dose: 100 mg Metformin HCl (Glucophage) 500 mg PO TIDCC [facility] Last Admin: 06/15/18 13:34 Dose: 500 mg Metoprolol Succinate (Toprol Xl) 50 mg PO DAILY [facility] Last Admin: 06/15/18 10:24 Dose: 50 mg Multivitamins/Minerals (Therapeutic-M Tab) 1 tab PO 0800 [facility] Last Admin: 06/15/18 08:19 Dose: 1 tab Niekq-5-Lgbz Ethyl Esters (Lovaza) 1 gm PO DAILY [facility] Last Admin: 06/15/18 10:24 Dose: 1 gm Rosuvastatin Calcium (Crestor) 5 mg PO QPM [facility] Last Admin: 06/14/18 17:36 Dose: 5 mg Sertraline HCl (Zoloft) 50 mg PO DAILY [facility] Last Admin: 06/15/18 10:28 Dose: 50 mg Sitagliptin Phosphate (Januvia) 25 mg PO DAILY [facility] Last Admin: 06/15/18 10:28 Dose: 25 mg Physical Exam - Head Exam Head Exam: ATRAUMATIC - Eye Exam Eye Exam: EOMI - ENT Exam ENT Exam: Mucous Membranes Moist - Neck Exam Neck exam: Positive for: Full Rom - Respiratory Exam Respiratory Exam: Clear to Auscultation Bilateral - Cardiovascular Exam Cardiovascular Exam: REGULAR RHYTHM - GI/Abdominal Exam GI & Abdominal Exam: Normal Bowel Sounds, Soft - Exam External exam: NORMAL EXTERNAL EXAM - Extremities Exam Extremities exam: Positive for: joint swelling - Back Exam Back exam: NORMAL INSPECTION - Neurological Exam Neurological exam: Alert, Oriented x3, Reflexes Normal - Psychiatric Exam Psychiatric exam: Normal Affect, Normal Mood - Skin Skin Exam: Dry, Warm Results - Vital Signs Recent Vital Signs: Last Vital Signs Temp 97.5 F L 06/15/18 15:38 Pulse 65 06/15/18 15:38 Resp 20 06/15/18 15:38 BP 144/55 L 06/15/18 15:38 Pulse Ox 97 06/15/18 15:38 - Labs Result Diagrams: 06/14/18 06:14 06/14/18 06:14 Labs: Laboratory Results - last 24 hr 06/14/18 06/14/18 06/15/18 16:18 21:00 06:01 POC Glucose (mg/dL) 203 H 175 H 135 H 06/15/18 12:36 POC Glucose (mg/dL) 135 H - EKG Data EKG Interpreted by: Myself EKG shows normal: Sinus rhythm (as above) Assessment & Plan - Assessment and Plan (Free Text) Assessment: 1. The pt has hilar fullness on cxr, an elevated BNP leve, but no pulmonary edema seen on CT. She has no dyspnea, and lies flat without difficulty. The patient may indeed have elevated left sided filling pressures from HTN and diastolic dysfunction, but there is no current vascualr congestion. Lungs also clear on exam and no JVD noted. 2. Echo is needed to ass lv ef and diastolic assessment. It is ordered. 3. BP is high in spite of norvasc, metoprolol, arb. Will add hctz and stop lasix. - Date & Time Date: 06/15/18 Time: 16:27
[2018-06-15 16:58] LABS: HEMOGLOBIN 10.3 g/dL (11.0-16.0); MEAN CELL VOLUME 83.9 fL (81.0-99.0); MEAN CORPUSCULAR HEMOGLOBIN 27.9 pg (27.0-31.0); MEAN CORPUSCULAR HGB CONC 33.3 g/dL (33.0-37.0); MEAN PLATELET VOLUME 9.1 fL (7.2-11.7); RBC 3.69 Mil/uL (3.80-5.20); RED CELL DISTRIBUTION WIDTH 14.7 % (11.5-14.5); WHITE BLOOD COUNT 6.1 K/uL (4.8-10.8)
[2018-06-15 17:24] LABS: ALB/GLOB RATIO 1.2 (1.0-2.1)
[2018-06-16 07:19] LABS: HEMOGLOBIN 10.2 g/dL (11.0-16.0); MEAN CELL VOLUME 85.2 fL (81.0-99.0); MEAN CORPUSCULAR HEMOGLOBIN 28.5 pg (27.0-31.0); MEAN CORPUSCULAR HGB CONC 33.5 g/dL (33.0-37.0); RBC 3.57 Mil/uL (3.80-5.20); RED CELL DISTRIBUTION WIDTH 14.7 % (11.5-14.5); WHITE BLOOD COUNT 5.4 K/uL (4.8-10.8)
[2018-06-16 07:21] LABS: ALB/GLOB RATIO 1.2 (1.0-2.1); ALBUMIN 3.6 g/dL (3.5-5.0); CALCIUM 8.8 mg/dl (8.6-10.4)
[2018-06-16] MEDS: Multivitamin With Minerals Tab PO SCH ×2 (08:44→09:08)
[2018-06-16 09:07] VITALS: PULSE 65
[2018-06-16 09:08] VITALS: BP 160/79; RESP 18; TEMP 98.2; O2SAT 95
--- NOTE | 2018-06-16 09:54 | PCM.HF ---
Heart Failure Core Measure - Heart Failure Ejection Fraction: 40 % or Greater ANAYA Inhibitor Prescribed: No Contraindication/Reason for not providing: on anaya Beta-Leana Prescribed: Metoprolol Succinate Angiotensin II Receptor Leana Prescribed: Yes AnticoagulationTherapy for Atrial Fibrillation/Atrialflutter: No Contraindication/Reason for not providing: no hx of sa fib Aldosterone Antagonist Prescribed: No Contraindication/Reason for not providing: ef>45 Hydralazine Nitrate Prescribed: No Contraindication/Reason for not providing: EF>45 Implantable Cardioverter Defibrillator Therapy: No Contraindication/Reason for not providing: ef>45 Cardiac Resynchronization Therapy Prescribed: No Contraindication/Reason for not providing: ef>45 - Follow up Will be discharged to: Home Follow Up Date (must be within 7 days from discharge): 06/22/18 Follow Up Time: 09:00
[2018-06-16] MEDS: Omega-3-Acid Ethyl Esters 1 GM Cap PO SCH (10:46)
[2018-06-16] MEDS: Aspirin-Dipyridamole 200-25 mg ER Cap PO SCH (10:46)
[2018-06-16] MEDS: Metoprolol Succinate 50 mg XL Tab PO SCH (10:47)
[2018-06-16] MEDS: Enoxaparin 30 mg Syringe SC SCH (10:47)
--- NOTE | 2018-06-16 22:54 | CARD ---
APPROVED REPORT Date of service: 06/16/2018 EXAM: Two-dimensional and M-mode echocardiogram with Doppler and color Doppler. Other Information Quality : TDSRhythm : INDICATION CVA/TIA RISK FACTORS Hypertension Diabetes 2D DIMENSIONS IVSd1.0 (0.7-1.1cm)LVDd3.5 (3.9-5.9cm) PWd1.0 (0.7-1.1cm)LA Uqtspf65 (18-58mL) LVDs2.2 (2.5-4.0cm)FS (%) 35.2 % LVEF (%)65.7 (>50%)LVEF (Lopez's)76.58 % M-Mode DIMENSIONS Left Atrium (MM)3.75 (2.5-4.0cm)IVSd0.97 (0.7-1.1cm) Aortic Root3.15 (2.2-3.7cm)LVDd4.81 (4.0-5.6cm) Aortic Cusp Exc.1.83 (1.5-2.0cm)PWd1.06 (0.7-1.1cm) FS (%) 50 %LVDs2.42 (2.0-3.8cm) LVEF (%)81 (>50%) Mitral Valve MV E Llfcgrfe512.4cm/sMV A Hfglyqvz079.0cm/sE/A ratio0.7 TDI Lateral E' Peak V6.42cm/sMedial E' Peak V4.80cm/sE/Lateral E'15.8 E/Medial E'21.1 LEFT VENTRICLE The left ventricle is normal size. There is normal left ventricular wall thickness. Left ventricle systolic function is normal. The Ejection Fraction is >70%. There is normal LV segmental wall motion. Tissue Doppler imaging reveals abnormal left ventricular diastolic dysfunction. RIGHT VENTRICLE The right ventricle is normal size. There is normal right ventricular wall thickness. The right ventricular systolic function is normal. ATRIA The left atrium size is normal. The right atrium size is normal. The interatrial septum is intact with no evidence for an atrial septal defect. AORTIC VALVE The aortic valve is mildly sclerotic. The aortic valve is mildly thickened but opens well. No aortic regurgitation is present. There is no aortic valvular stenosis. There is no aortic valvular vegetation. MITRAL VALVE The posterior mitral valve leaflet appears thickened, but open well. There is no evidence of mitral valve prolapse. There is no mitral valve stenosis. Mitral regurgitation is mild. TRICUSPID VALVE The tricuspid valve is normal in structure. There is mild tricuspid regurgitation. There is no pulmonary hypertension. PULMONIC VALVE The pulmonic valve is not well visualized. There is no pulmonic valvular regurgitation. GREAT VESSELS The aortic root is normal in size. PERICARDIAL EFFUSION There is no significant pericardial effusion. <Conclusion> Left ventricle systolic function is normal. The Ejection Fraction is >70%. Diastolic dysfunction. No aortic regurgitation is present. Mitral regurgitation is mild. There is mild tricuspid regurgitation. There is no pulmonary hypertension.
--- NOTE | 2018-06-17 02:27 | DS ---
HISTORY OF PRESENT ILLNESS: She is breathing much better. I believe the Lasix IV helped a lot. She diuresed nicely. There is no chest x-ray showing pneumonia at this time. Also no more abdominal pain, and she is breathing better. She is at home on Aggrenox, Cozaar, Crestor, Glucophage, HydroDIURIL, Januvia, Lovaza, no more Lovenox, Norvasc, , Toprol, Xanax, and Zoloft. As the medicines she is getting now that are active in the facility. She is alert. She is happy about going home. PHYSICAL EXAMINATION: VITAL SIGNS: Has 98 temp, 85 pulse, 167/61 blood pressure, 20 respiratory rate, and 96% O2 sat on room air. HEENT: Head is atraumatic and normocephalic. HEART: Regular rate. LUNGS: Decreased breath sounds, but clear. ABDOMEN: Soft. EXTREMITIES: No edema. HOSPITAL COURSE: She was seen by GI and Cardiology. She will be sent home today. She will be followed on an outpatient. We are going to have the pharmacy to call my office this afternoon and then go over the new medications that she is taking. She has left hand contracture and left- sided weakness secondary to an old CVA and CHF. She is being discharged. Vipin Lopez DO MTDRemigio
--- NOTE | 2018-06-19 08:41 | PQF ---
PROVIDER RESPONSE TEXT: Systolic chf REVIEWER QUERY TEXT: CHF Acuity and Type Congestive Heart Failure is documented in the Medical Record. Please document the type and acuity (in cludes probable or suspected) Such as: Type: -- Systolic -- Diastolic -- Combined -- Other, please specify Acuity: -- Acute -- Chronic -- Acute on chronic -- Other, please specify Also please document the underlying cause of the CHF (includes probable or suspected) The patient's Clinical Indicators include: BNP ELEVATED SEE: ECHO 06/15/18 EJECTION FRACTION > 70% DIASTOLIC DYSFUNCTION Query created by: Sonali Churchill on 06/17/2018 11:01 AM Electronically signed by: Vipin Lopez DO 06/19/2018 8:38 AM
== END 2018-06-16 11:33 | disposition home or self-care (01) | DRG 292 ==
LOC: C.ER 05:31 → C.9E 09:45 → C.6T 14:36
PROVIDERS: ADMIT Family Medicine; ATTEND Family Medicine
DX: I11.0 Hypertensive heart disease with heart failure (principal); I50.23 Acute on chronic systolic (congestive) heart failure; I69.354 Hemiplegia and hemiparesis following cerebral infarction affecting left non-dominant side; K80.20 Calculus of gallbladder without cholecystitis without obstruction; E11.9 Type 2 diabetes mellitus without complications; D64.9 Anemia, unspecified; I44.0 Atrioventricular block, first degree; M24.542 Contracture, left hand; Z79.84 Long term (current) use of oral hypoglycemic drugs; Z98.51 Tubal ligation status; Z98.49 Cataract extraction status, unspecified eye